=== PATIENT | female | born 2000 | race Caucasian/White ===

== ENCOUNTER → 2018-03-23 | Outpatient (CLI) | payer OTHER ==
--- NOTE | 2018-03-23 10:00 | Diagnostic Imaging Report ---
PROCEDURE: US abdomen complete. TECHNIQUE: Multiple real-time grayscale images were obtained over the abdomen in various projections. INDICATION: Right lower quadrant pain. The liver is normal in size at 14.9 cm. No discrete liver mass is identified. Gallbladder is without stones or sludge. No wall thickening or biliary duct dilatation is seen. The pancreas is obscured by bowel gas. Aorta is also obscured. IVC is unremarkable. Spleen is normal in size. The right and left kidneys are unremarkable. No calculi or hydronephrosis is seen. There is no ascites. IMPRESSION: Unremarkable abdominal ultrasound. Dictated by: Dictated on workstation # [id number]
== END ==
LOC: RAD 07:22
PROVIDERS: ATTEND Nurse Practitioner Family
DX: R10.31 Right lower quadrant pain (principal)
CPT/HCPCS: 76700

== ENCOUNTER 2018-11-14 11:35 | Inpatient (IN) | payer OTHER ==
[~2018-11-14] VITALS: Ht 152.4 cm; Wt 68.0 kg
[2018-11-14] VITALS (39 sets, daily range): BP systolic 130–167; BP diastolic 70–105
--- OUTSIDE RECORDS SUMMARY | 2018-11-14 11:39 | XMS REPORT ---
Author Author BRENT CEJA Organization [facility] Address [address] [place] [address] Care Team Providers Care Patient Experience Coordinator Name Role Phone BRENT CEJA Unavailable PROBLEMS Type Condition ICD9-CM Code FON46-QA Code Onset Dates Condition Status SNOMED Code Problem High risk teen in first trimester O09.891 Active 408188130 Problem Irregular menstrual bleeding N92.6 Active 27686859 Problem Amenorrhea N91.2 Active 72239411 Problem Chronic fatigue R53.82 Active 63833561 ALLERGIES No Information ENCOUNTERS Encounter Location Date Diagnosis [facility] [id number] [place] [address] 40370- 5977 Oct, [facility] [id number] [place] [address] 52942- 2806 Oct, [facility] [id number] [place] [address] 95683- 7254 Sep, [facility] [id number] [place] [address] 96010- 6833 Sep, [facility] [address] [place] [address] 62296- 6725 Aug, [facility] [id number] [place] [address] 39967- 2644 Aug, [facility] [id number] [place] [address] 02697- 9781 Jul, [facility] [id number] [place] [address] 92974- 7606 Jun, [facility] [id number] [place] [address] 68153- 3347 May, [facility] [address], [place] [address] 16 Apr, 2018 First trimester Z34.91 ; 9 weeks gestation of Z3A.09 and High risk teen in first trimester O09.891 [facility] [address] [address] 11 Apr, 2018 [place] [id number] [place] [address] 05762- 8062 Apr, Normal , first Z34.00 ; Encounter for immunization Z23 and Currently in first trimester with unknown gestational age Z34.91 [place] [id number] [place] [address] 54261- 5376 17 Mar, 2018 [place] [id number] [place] [address] 35360- 9943 17 Mar, 2018 [place] [id number] [place] [address] 64310- 7323 17 Mar, 2018 Positive test Z32.01 and Spotting affecting in first trimester O26.851 [place] [id number] [place] [address] 03230- 4048 14 Mar, 2018 [place] [id number] [place] [address] 74321- 8918 10 Mar, 2018 Pelvic pain R10.2 ; Amenorrhea N91.2 ; Other specified bacterial agents as the cause of diseases classified elsewhere B96.89 ; Acute vaginitis N76.0 and Positive test Z32.01 [facility] [address] [id number] [address] Feb, Encounter for test, result negative Z32.02 ; Right lower quadrant abdominal pain R10.31 and Amenorrhea N91.2 [facility] [address] [place] [address] 84725- 2505 Oct, Irregular menstrual bleeding N92.6 and Initiation of oral contraception Z30.011 [place] [id number] [place] [address] [place] [address]- [address]83 Jul, Encounter for test, result unknown Z32.00 [facility] [address] [facility] [id number] [place] [address] Jul, Chronic fatigue R53.82 and Amenorrhea N91.2 IMMUNIZATIONS No Known Immunizations SOCIAL HISTORY Never Assessed REASON FOR VISIT OB f/u (Centering) PLAN OF CARE Activity Details Follow Up 4 Weeks Reason: VITAL SIGNS Weight 141.0 lbs 2018-05-02 Blood pressure systolic 116 mmHg 2018-05-02 Blood pressure diastolic 72 mmHg 2018-05-02 MEDICATIONS Medication Instructions Dosage Frequency Start Date End Date Duration Status 28-0.8 MG Orally daily 1 24h Apr, Active RESULTS No Results PROCEDURES No Known procedures INSTRUCTIONS MEDICATIONS ADMINISTERED No Known Medications MEDICAL (GENERAL) HISTORY Type Description Date Surgical History No know Surgical history
--- OUTSIDE RECORDS SUMMARY | 2018-11-14 11:39 | XMS REPORT ---
Author Author THEODORE FERGUSON [facility] Address [address] [place] [address] Care Team Providers Care Sea Shell Gatherer Name Role Phone THEODORE FERGUSON Unavailable PROBLEMS Type Condition ICD9-CM Code YOD24-KM Code Onset Dates Condition Status SNOMED Code Problem Irregular menstrual bleeding N92.6 Active 53527555 Problem Amenorrhea N91.2 Active 73418398 Problem Chronic fatigue R53.82 Active 04660234 ALLERGIES No Known Allergies ENCOUNTERS Encounter Location Date Diagnosis [facility] [id number] [place] [address] 90606- 9001 Apr, Normal , first Z34.00 ; Encounter for immunization Z23 and Currently in first trimester with unknown gestational age Z34.91 [facility] [id number] [place] [address] 33039- 7019 Mar, [facility] [address] 03381- 5880 Mar, [facility] [id number] [place] [address] 27433- 7917 Mar, Positive test Z32.01 and Spotting affecting in first trimester O26.851 [facility] [id number] [place] [address] 61024- 0443 14 Mar, 2018 [facility] [id number] [place] [address] 55272- 7879 10 Mar, 2018 Pelvic pain R10.2 ; Amenorrhea N91.2 ; Other specified bacterial agents as the cause of diseases classified elsewhere B96.89 ; Acute vaginitis N76.0 and Positive test Z32.01 [facility] [id number] [place] [address] 80488 -7884 Feb, Encounter for test, result negative Z32.02 ; Right lower quadrant abdominal pain R10.31 and Amenorrhea N91.2 [facility] [id number] Oct, Irregular menstrual bleeding N92.6 and Initiation of oral contraception Z30.011 [facility] [address] [place] [address] 187079- 8490 Jul, Encounter for test, result unknown Z32.00 [facility] [address] [facility] [id number] [address] Jul, Chronic fatigue R53.82 and Amenorrhea N91.2 IMMUNIZATIONS No Known Immunizations SOCIAL HISTORY Never Assessed REASON FOR VISIT PLAN OF CARE VITAL SIGNS MEDICATIONS Medication Instructions Dosage Frequency Start Date End Date Duration Status Classic 28-0.8 MG Orally Once a day 1 tablet 24h Mar, Active Metronidazole 500 mg Orally Twice a day 1 tablet 12h Mar, Mar, 10 day(s) Active RESULTS No Results PROCEDURES No Known procedures INSTRUCTIONS MEDICATIONS ADMINISTERED No Known Medications MEDICAL (GENERAL) HISTORY Type Description Date Surgical History No know Surgical history
--- OUTSIDE RECORDS SUMMARY | 2018-11-14 11:39 | XMS REPORT ---
Author Author BRENT CEJA Organization [facility] [place] Address [address] [place] [address] Care Team Providers Care Furnace And Wash Equipment Operator Name Role Phone BRENT CEJA Unavailable PROBLEMS Type Condition ICD9-CM Code WGU59-ES Code Onset Dates Condition Status SNOMED Code Problem Irregular menstrual bleeding N92.6 Active 22777108 Problem Amenorrhea N91.2 Active 69541991 Problem Chronic fatigue R53.82 Active 95581696 ALLERGIES No Known Allergies ENCOUNTERS Encounter Location Date Diagnosis [place] [id number] [address] Apr, [facility] [place] [address] 30[address]- 3226 Apr, Normal , first Z34.00 ; Encounter for immunization Z23 and Currently in first trimester with unknown gestational age Z34.91 [facility] [place] [id number] [place] [address] 59134- 6178 Mar, [place] [id number] [place] [address] 06800- 2900 Mar, [place] [address] 16660- 5175 Mar, Positive test Z32.01 and Spotting affecting in first trimester O26.851 [place] [address] 93081- 4036 Mar, [place] [id number] [place] [address] 69446- 8353 Mar, Pelvic pain R10.2 ; Amenorrhea N91.2 ; Other specified bacterial agents as the cause of diseases classified elsewhere B96.89 ; Acute vaginitis N76.0 and Positive test Z32.01 [facility] [address], [place] [address] Feb, Encounter for test, result negative Z32.02 ; Right lower quadrant abdominal pain R10.31 and Amenorrhea N91.2 [facility] [place] [address] [place] [address] 55948- 2037 Oct, Irregular menstrual bleeding N92.6 and Initiation of oral contraception Z30.011 [facility] [place] [address] [place] [address] 79542- 0484 15 Jul, 2017 Encounter for test, result unknown Z32.00 [facility] [id number] [place] [address] 98878 -2880 Jul, Chronic fatigue R53.82 and Amenorrhea N91.2 IMMUNIZATIONS Vaccine Route Administration Date Status FLULAVAL QUAD 0.5ML (6 MO & UP) 2018 IM Intramuscular Apr 17, 2018 Administered SOCIAL HISTORY Never Assessed REASON FOR VISIT OB-intake -- denys echeverria PLAN OF CARE Activity Details Follow Up 4 weeks Reason: Pending Test GC/CHLAM URINE (STATE) Pending Test SYPHILIS (STATE) Pending Test HIV (STATE) Pending Test HEP B SURFACE ANTIGEN (STATE) Pending Test Acylcarnitine Profile (OUTSIDE ORDER) Pending Test Ultrasound : OB, Early <14 WEEKS VITAL SIGNS Height 59.50 in 2018-04-17 Weight 139.3 lbs 2018-04-17 Temperature 98.4 degrees Fahrenheit 2018-04-17 BMI 27.664 kg/m2 2018-04-17 Blood pressure systolic 108 mmHg 2018-04-17 Blood pressure diastolic 70 mmHg 2018-04-17 MEDICATIONS Medication Instructions Dosage Frequency Start Date End Date Duration Status Classic 28-0.8 MG Orally Once a day 1 tablet 24h Mar, Active 28-0.8 MG Orally daily 1 24h Apr, Active RESULTS No Results PROCEDURES Procedure Date Ordered Result Body Site FLULAVAL QUAD 0.5ML (6 MO AND UP) 2017Apr 17, 2018 SINGLE IMMUNIZATION ADMIN Apr 17, 2018 VENIPUNCT, ROUTINE* Apr 17, 2018 No Charge Apr 17, 2018 RBC ANTIBODY SCREEN Apr 17, 2018 RUBELLA ANTIBODY Apr 17, 2018 ASSAY THYROID STIM HORMONE Apr 17, 2018 URINALYSIS, AUTO, W/O SCOPE Apr 17, 2018 BLOOD TYPING, RH (D) Apr 17, 2018 URINE CULTURE/COLONY COUNT Apr 17, 2018 COMPLETE CBC W/AUTO DIFF WBC Apr 17, 2018 BLOOD TYPING, ABO Apr 17, 2018 INSTRUCTIONS MEDICATIONS ADMINISTERED No Known Medications MEDICAL (GENERAL) HISTORY Type Description Date Surgical History No know Surgical history
--- OUTSIDE RECORDS SUMMARY | 2018-11-14 11:39 | XMS REPORT ---
Author Author RAMO FOY [facility] Address [address] [place] [address] Care Team Providers Care Track Laborer Name Role Phone RAMO FOY Unavailable PROBLEMS Type Condition ICD9-CM Code [id number] Code Onset Dates Condition Status SNOMED Code Problem Irregular menstrual bleeding N92.6 Active 20592162 Problem Amenorrhea N91.2 Active 76645004 Problem Chronic fatigue R53.82 Active 09087504 ALLERGIES No Known Allergies ENCOUNTERS Encounter Location Date Diagnosis [facility] [id number] [place] [address] 45105- 1253 Apr, Normal , first Z34.00 ; Encounter for immunization Z23 and Currently in first trimester with unknown gestational age Z34.91 [facility] [id number] [place] [address] 40781- 1164 Mar, [facility] [id number] [place] [address] 79934- 4056 Mar, [facility] [id number] [place] [address] 92263- 9684 Mar, Positive test Z32.01 and Spotting affecting in first trimester O26.851 [facility] [id number] [place] [address] 11280- 3444 14 Mar, 2018 [facility] [id number] [place] [address] 66249- 2501 10 Mar, 2018 Pelvic pain R10.2 ; Amenorrhea N91.2 ; Other specified bacterial agents as the cause of diseases classified elsewhere B96.89 ; Acute vaginitis N76.0 and Positive test Z32.01 [facility] [id number] [place] [address] 31487 -2686 Feb, Encounter for test, result negative Z32.02 ; Right lower quadrant abdominal pain R10.31 and Amenorrhea N91.2 [facility] [address] [facility] [id number] [address] Oct, Irregular menstrual bleeding N92.6 and Initiation of oral contraception Z30.011 [facility] [id number] [address]1 Jul, Encounter for test, result unknown Z32.00 [facility] [address] [facility] [id number] [address] [address] Jul, Chronic fatigue R53.82 and Amenorrhea N91.2 IMMUNIZATIONS No Known Immunizations SOCIAL HISTORY Never Assessed REASON FOR VISIT labs f/u PLAN OF CARE Activity Details Follow Up 4 Weeks Reason:OB intake appt VITAL SIGNS Height 59.50 in 2018-04-03 Weight 138.8 lbs 2018-04-03 Temperature 98.7 degrees Fahrenheit 2018-04-03 Heart Rate 92 bpm 2018-04-03 Respiratory Rate 18 2018-04-03 BMI 27.56 kg/m2 2018-04-03 Blood pressure systolic 128 mmHg 2018-04-03 Blood pressure diastolic 72 mmHg 2018-04-03 MEDICATIONS Medication Instructions Dosage Frequency Start Date End Date Duration Status Classic 28-0.8 MG Orally Once a day 1 tablet 24h 10 Mar, 2018 Active Metronidazole 500 mg Orally Twice a day 1 tablet 12h Mar, Mar, 10 day(s) Active RESULTS No Results PROCEDURES Procedure Date Ordered Result Body Site CHORIONIC GONADOTROPIN TEST Apr 03, 2018 VENIPUNCT, ROUTINE* Apr 03, 2018 INSTRUCTIONS MEDICATIONS ADMINISTERED No Known Medications MEDICAL (GENERAL) HISTORY Type Description Date Surgical History No know Surgical history
--- OUTSIDE RECORDS SUMMARY | 2018-11-14 11:39 | XMS REPORT ---
Author Author BRENT CEJA Organization [facility] Address [address] [place] [address] Care Team Providers Care Clinical Associate Name Role Phone BRENT CEJA Unavailable PROBLEMS Type Condition ICD9-CM Code ZWW47-XH Code Onset Dates Condition Status SNOMED Code Problem High risk teen in first trimester O09.891 Active 276501091 Problem Irregular menstrual bleeding N92.6 Active 60571096 Problem Amenorrhea N91.2 Active 46244747 Problem Chronic fatigue R53.82 Active 27826758 ALLERGIES No Information ENCOUNTERS Encounter Location Date Diagnosis [place] [id number] [place] [address] 26015- 9388 Jun, [place] [id number] [place] [address] 80047- 4783 May, [place] [id number] [place] [address] 06481- 4256 May, High risk teen in first trimester O09.891 and 13 weeks gestation of Z3A.13 [place] [id number] [place] [address] 39709- 6064 Apr, First trimester Z34.91 ; 9 weeks gestation of Z3A.09 and High risk teen in first trimester O09.891 [place] [id number] [place] [address] 53152- 8635 Apr, [place] [id number] [place] [address] 01619- 9384 Apr, Normal , first Z34.00 ; Encounter for immunization Z23 and Currently in first trimester with unknown gestational age Z34.91 [place] [address] [address]- 6825 17 Mar, 2018 [place] [address], [place] [address]- 8627 17 Mar, 2018 [place] [id number] [place] [address] 12717- 8392 17 Mar, 2018 Positive test Z32.01 and Spotting affecting in first trimester O26.851 [place] [id number] [place] [address] 01802- 8262 14 Mar, 2018 [place] [id number] [place] [address] 83264- 6942 10 Mar, 2018 Pelvic pain R10.2 ; Amenorrhea N91.2 ; Other specified bacterial agents as the cause of diseases classified elsewhere B96.89 ; Acute vaginitis N76.0 and Positive test Z32.01 [place] [address] [place] [address] 60684 -1690 Feb, Encounter for test, result negative Z32.02 ; Right lower quadrant abdominal pain R10.31 and Amenorrhea N91.2 [place] [address] [place] [address] 19065- 2911 Oct, Irregular menstrual bleeding N92.6 and Initiation of oral contraception Z30.011 [place] [address] [place] [address] 74990- 2790 15 Jul, 2017 Encounter for test, result unknown Z32.00 [place] [address] [place] [address] 97799 -7467 Jul, Chronic fatigue R53.82 and Amenorrhea N91.2 IMMUNIZATIONS No Known Immunizations SOCIAL HISTORY Never Assessed REASON FOR VISIT triage PLAN OF CARE VITAL SIGNS MEDICATIONS Unknown Medications RESULTS No Results PROCEDURES No Known procedures INSTRUCTIONS MEDICATIONS ADMINISTERED No Known Medications MEDICAL (GENERAL) HISTORY Type Description Date Surgical History No know Surgical history
--- OUTSIDE RECORDS SUMMARY | 2018-11-14 11:40 | XMS REPORT | Continuity of Care Document ---
Author Organization Unknown Address Unknown Allergies There is no data. Medications There is no data. Problems There is no data. Procedures There is no data. Results Test Result Range TEST, SERUM (QUAL) - 08/01/17 09:48 HCG, TOTAL, QL NEGATIVE See Note: TESTOSTERONE, TOTAL (WOMEN, CHILDREN, HYPOGONADAL MALES) - 03/27/18 11:34 TESTOSTERONE, TOTAL, LC/MS/MS 62 ng/dL 2-45 FREE TESTOSTERONE 9.6 pg/mL 0.1-6.4 GC/CHLAMYDIA (SWAB OR URINE)-RAPID - 03/27/18 13:28 CHLAMYDIA TRACHOMATIS RNA, TMA NOT DETECTED NOT DETECTED NEISSERIA GONORRHOEAE RNA, TMA NOT DETECTED NOT DETECTED COMMENT NRG HCG, QUANTITATIVE - 04/03/18 10:41 [place] [address] mIU/mL NRG CULTURE, URINE - 04/17/18 16:26 CULTURE, URINE, ROUTINE SEE NOTE NRG Encounters ACCT No. Visit Date/Time Discharge Status Pt. Type Provider Facility Loc./Unit Complaint [id number] 11/09/2018 14:20:00 11/09/2018 23:59:59 [facility] Outpatient BRENT CEJA [facility] [id number] 04/17/2018 16:40:00 Document Registration [id number] 04/03/2018 09:20:00 Document Registration [id number] 03/27/2018 10:20:00 Document Registration [id number] 08/01/2017 09:40:00 Document Registration
--- OUTSIDE RECORDS SUMMARY | 2018-11-14 11:40 | XMS REPORT ---
Author Author RAMO FOY [facility] Address [address] [place] [address] Care Team Providers Care Claim Approver Name Role Phone RAMO FOY Unavailable PROBLEMS Type Condition ICD9-CM Code MQX08-YC Code Onset Dates Condition Status SNOMED Code Problem Irregular menstrual bleeding N92.6 Active 72867713 Problem Amenorrhea N91.2 Active 78674955 Problem Chronic fatigue R53.82 Active 46366535 ALLERGIES No Known Allergies ENCOUNTERS Encounter Location Date Diagnosis [facility] [id number] [place] [address] 02430- 9077 Apr, Normal , first Z34.00 ; Encounter for immunization Z23 and Currently in first trimester with unknown gestational age Z34.91 [facility] [id number] [place] [address] 63678- 5896 Mar, [facility] [id number] [place] [address] 93997- 8701 Mar, [facility] [id number] [place] [address] 14139- 2140 Mar, Positive test Z32.01 and Spotting affecting in first trimester O26.851 [facility] [id number] [place] [address] 62505- 9094 14 Mar, 2018 [facility] [id number] [place] [address] 17241- 7468 10 Mar, 2018 Pelvic pain R10.2 ; Amenorrhea N91.2 ; Other specified bacterial agents as the cause of diseases classified elsewhere B96.89 ; Acute vaginitis N76.0 and Positive test Z32.01 [facility] [id number] [place] [address] 19945 -2502 Feb, Encounter for test, result negative Z32.02 ; Right lower quadrant abdominal pain R10.31 and Amenorrhea N91.2 [facility] [address] [facility] [id number] [address] Oct, Irregular menstrual bleeding N92.6 and Initiation of oral contraception Z30.011 [facility] [id number] [place] [address] 714220- 1075 Jul, Encounter for test, result unknown Z32.00 [facility] [address] [facility] [id number] [address] Jul, Chronic fatigue R53.82 and Amenorrhea N91.2 IMMUNIZATIONS No Known Immunizations SOCIAL HISTORY Never Assessed REASON FOR VISIT Pt had an ultrasound and has not recieved results and is still in abdominal pain. Tuesday, she spotted, but has not had a full period yet-awoods PLAN OF CARE Activity Details Follow Up 1w Reason:pelvic pain VITAL SIGNS Height 59.50 in 2018-03-27 Weight 138.6 lbs 2018-03-27 Temperature 99.2 degrees Fahrenheit 2018-03-27 Heart Rate 78 bpm 2018-03-27 BMI 27.52 kg/m2 2018-03-27 Blood pressure systolic 102 mmHg 2018-03-27 Blood pressure diastolic 60 mmHg 2018-03-27 MEDICATIONS Medication Instructions Dosage Frequency Start Date End Date Duration Status Classic 28-0.8 MG Orally Once a day 1 tablet 24h Mar, 30 day(s) Active Metronidazole 500 mg Orally Twice a day 1 tablet 12h Mar, Mar, 10 day(s) Active RESULTS No Results PROCEDURES Procedure Date Ordered Result Body Site VENIPUNCT, ROUTINE* Mar 27, 2018 URINE TEST Mar 27, 2018 CHORIONIC GONADOTROPIN TEST Mar 27, 2018 CHYLMD TRACH, DNA, AMP PROBE Mar 27, 2018 N.GONORRHOEAE, DNA, AMP PROB Mar 27, 2018 URINALYSIS, AUTO, W/O SCOPE Mar 27, 2018 COMPLETE CBC W/AUTO DIFF WBC Mar 27, 2018 URINE CULTURE/COLONY COUNT Mar 27, 2018 Bacterial Vaginosis In House Mar 27, 2018 TRICHOMONAS ASSAY W/OPTIC Mar 27, 2018 COMPREHEN METABOLIC PANEL Mar 27, 2018 ASSAY THYROID STIM HORMONE Mar 27, 2018 INSTRUCTIONS MEDICATIONS ADMINISTERED No Known Medications MEDICAL (GENERAL) HISTORY Type Description Date Surgical History No know Surgical history
--- OUTSIDE RECORDS SUMMARY | 2018-11-14 11:40 | XMS REPORT ---
Author Author RAMO FOY [facility] Address [address] [place] [address] Care Team Providers Care Marine Fireman Name Role Phone RAMO FOY Unavailable PROBLEMS Type Condition ICD9-CM Code [id number] Code Onset Dates Condition Status SNOMED Code Problem Irregular menstrual bleeding N92.6 Active 15154886 Problem Amenorrhea N91.2 Active 62769142 Problem Chronic fatigue R53.82 Active [id number] ALLERGIES No Information ENCOUNTERS Encounter Location Date Diagnosis [facility] [address] [phone] Apr, Normal , first Z34.00 and Encounter for immunization Z23 [facility] [id number] [place] [phone] Mar, [facility] [address] [phone] Mar, [facility] [id number] [place] [address] Mar, Positive test Z32.01 and Spotting affecting in first trimester O26.851 [facility] [id number] [place] [address] 14 Mar, 2018 [facility] [id number] [place] [address] 10 Mar, 2018 Pelvic pain R10.2 ; Amenorrhea N91.2 ; Other specified bacterial agents as the cause of diseases classified elsewhere B96.89 ; Acute vaginitis N76.0 and Positive test Z32.01 [facility] [address] [place] [address] Feb, Encounter for test, result negative Z32.02 ; Right lower quadrant abdominal pain R10.31 and Amenorrhea N91.2 [facility] [address] [place] [address] Oct, Irregular menstrual bleeding N92.6 and Initiation of oral contraception Z30.011 [facility] [address] [place] [address] Jul, Encounter for test, result unknown Z32.00 [facility] [address] [address] Jul, Chronic fatigue R53.82 and Amenorrhea N91.2 IMMUNIZATIONS No Known Immunizations SOCIAL HISTORY Never Assessed REASON FOR VISIT Lab results PLAN OF CARE VITAL SIGNS MEDICATIONS Unknown Medications RESULTS No Results PROCEDURES No Known procedures INSTRUCTIONS MEDICATIONS ADMINISTERED No Known Medications MEDICAL (GENERAL) HISTORY Type Description Date Surgical History No know Surgical history
--- OUTSIDE RECORDS SUMMARY | 2018-11-14 11:40 | XMS REPORT ---
Author Author THEODORE FERGUSON Organization [facility] Address [address] [place] [address] Care Team Providers Care Technology Solutions Architect Name Role Phone THEODORE FERGUSON Unavailable PROBLEMS Type Condition ICD9-CM Code IED01-LS Code Onset Dates Condition Status SNOMED Code Problem Irregular menstrual bleeding N92.6 Active 38696472 Problem Amenorrhea N91.2 Active 77464863 Problem Chronic fatigue R53.82 Active 39487201 ALLERGIES No Information ENCOUNTERS Encounter Location Date Diagnosis [facility] [id number] [place] [address] 27 Oct, 2017 Irregular menstrual bleeding N92.6 and Initiation of oral contraception Z30.011 [facility] [id number] [place] [address] Jul, Encounter for test, result unknown Z32.00 [facility] [address] [phone] 02 Jul, 2017 Chronic fatigue R53.82 and Amenorrhea N91.2 IMMUNIZATIONS No Known Immunizations SOCIAL HISTORY Never Assessed REASON FOR VISIT test (walk-in)/Blood PLAN OF CARE VITAL SIGNS MEDICATIONS Unknown Medications RESULTS No Results PROCEDURES Procedure Date Ordered Result Body Site CHORIONIC GONADOTROPIN ASSAY Aug 01, 2017 VENIPUNCT, ROUTINE* Aug 01, 2017 INSTRUCTIONS MEDICATIONS ADMINISTERED No Known Medications
--- OUTSIDE RECORDS SUMMARY | 2018-11-14 11:40 | XMS REPORT ---
Author Author DAMION CALDERON [facility] Address [address] [place] [address] Care Team Providers Care Construction Worker Name Role Phone DAMION CALDERON Unavailable PROBLEMS Type Condition ICD9-CM Code PBQ67-IU Code Onset Dates Condition Status SNOMED Code Problem Irregular menstrual bleeding N92.6 Active 43223862 Problem Amenorrhea N91.2 Active 84252932 Problem Chronic fatigue R53.82 Active 17836985 ALLERGIES No Known Allergies ENCOUNTERS Encounter Location Date Diagnosis [facility] [id number] [place] [address] 27 Oct, 2017 Irregular menstrual bleeding N92.6 and Initiation of oral contraception Z30.011 [facility] [id number] [place] [address] 15 Jul, 2017 Encounter for test, result unknown Z32.00 [facility] [id number] [place] [phone] 02 Jul, 2017 Chronic fatigue R53.82 and Amenorrhea N91.2 IMMUNIZATIONS No Known Immunizations SOCIAL HISTORY Never Assessed REASON FOR VISIT fatigue all the time rosalio rubio PLAN OF CARE Activity Details Follow Up prn Reason: VITAL SIGNS Weight 135.2 lbs 2017-07-19 Temperature 98.1 degrees Fahrenheit 2017-07-19 Heart Rate 80 bpm 2017-07-19 Respiratory Rate 18 2017-07-19 Blood pressure systolic 124 mmHg 2017-07-19 Blood pressure diastolic 64 mmHg 2017-07-19 MEDICATIONS Unknown Medications RESULTS Name Result Date Reference Range HEMOGLOBIN (IN HOUSE) 2017-07-19 HEMOGLOBIN 14.6 11.5 - 16 gm/dL Lot # [id number] Exp date 03/24/2017 TEST, URINE (IN HOUSE) 2017-07-19 RESULTS negative Lot # [id number] Control + Exp date PROCEDURES Procedure Date Ordered Result Body Site HEMOGLOBIN Jul 19, 2017 URINE TEST Jul 19, 2017 INSTRUCTIONS MEDICATIONS ADMINISTERED No Known Medications
--- OUTSIDE RECORDS SUMMARY | 2018-11-14 11:40 | XMS REPORT ---
Author Author BRITTON Patel Organization [facility] Address [address] [place] [address] Care Team Providers Care Heat And Frost Insulator Name Role Phone BRITTON aPtel Unavailable PROBLEMS Type Condition ICD9-CM Code HCA59-AJ Code Onset Dates Condition Status SNOMED Code Problem Irregular menstrual bleeding N92.6 Active 96517338 Problem Amenorrhea N91.2 Active 31299778 Problem Chronic fatigue R53.82 Active 50313285 ALLERGIES No Known Allergies ENCOUNTERS Encounter Location Date Diagnosis [facility] [address] [place] [address] 27 Oct, 2017 Irregular menstrual bleeding N92.6 and Initiation of oral contraception Z30.011 [facility] [address] [place] [address] 15 Jul, 2017 Encounter for test, result unknown Z32.00 [facility] [address] [place] [phone] 02 Jul, 2017 Chronic fatigue R53.82 and Amenorrhea N91.2 IMMUNIZATIONS No Known Immunizations SOCIAL HISTORY Never Assessed REASON FOR VISIT irregular bleeding WB-MA, Periods have been irregular for the past three months with heavy bleeding , Patient exxperiences bloating after every meal and has stomach pain PLAN OF CARE Activity Details Follow Up 1 Year Reason: control VITAL SIGNS Weight 138 lbs 2017-11-11 Temperature 97.5 degrees Fahrenheit 2017-11-11 Heart Rate 84 bpm 2017-11-11 Respiratory Rate 18 2017-11-11 Blood pressure systolic 122 mmHg 2017-11-11 Blood pressure diastolic 78 mmHg 2017-11-11 MEDICATIONS Unknown Medications RESULTS No Results PROCEDURES No Known procedures INSTRUCTIONS MEDICATIONS ADMINISTERED No Known Medications
[2018-11-14] MEDS ORDERED: MINERAL OIL CONCENTRATE 99.9% 15 ML UDC TOP PRN (13:15)
[2018-11-14] MEDS ORDERED: TERBUTALINE INJ 1 MG/ML (BRETHINE) AMP SC PRN (13:15)
[2018-11-14] MEDS ORDERED: LACTATED RINGERS 1,000 ML IV SCH (13:15)
[2018-11-14] MEDS ORDERED: MISOPROSTOL 100 MCG (CYTOTEC) TAB PO ONE (13:15)
[2018-11-14] MEDS ORDERED: LIDOCAINE/EPI 2% 1:200,00 (XYLOCAINE) 10 ML VIAL INJ ONE (13:15)
[2018-11-14] MEDS ORDERED: PREN1TAB79 PO (13:22)
[2018-11-14 13:25] LABS: BILIRUBIN,URINE NEGATIVE (NEGATIVE); CLARITY,URINE CLEAR; COLOR,URINE YELLOW; GLUCOSE, URINE (UA) NEGATIVE (NEGATIVE); KETONES,URINE NEGATIVE (NEGATIVE); LEUKOCYTE ESTERASE ,URINE NEGATIVE (NEGATIVE); NITRITE,URINE NEGATIVE (NEGATIVE); PH,URINE 6 (5-9); PROTEIN,URINE 3+ (NEGATIVE); UROBILINOGEN,URINE 1 MG/DL (NORMAL)
[2018-11-14 13:26] LABS: BASOPHILS % (AUTO) 0 % (0-10); EOSINOPHILS # (AUTO) 0.1 10^3/uL (0.0-0.3); EOSINOPHILS % (AUTO) 1 % (0-10); HEMATOCRIT 41 % (35-52); HEMOGLOBIN 14.5 G/DL (11.5-16.0); LYMPHOCYTES # (AUTO) 2.2 X 10^3 (1.0-4.0); LYMPHOCYTES % (AUTO) 24 % (12-44); MEAN CORPUSCULAR HEMOGLOBIN 29 PG (25-34); MEAN CORPUSCULAR HGB CONC 35 G/DL (32-36); MEAN CORPUSCULAR VOLUME 84 FL (80-99); MEAN PLATELET VOLUME 11.9 FL (7.4-10.4); MONOCYTES % (AUTO) 11 % (0-12); NEUTROPHILS # (AUTO) 5.7 X 10^3 (1.8-7.8); NEUTROPHILS % (AUTO) 63 % (42-75); PLATELET COUNT 236 10^3/uL (130-400); RED CELL DISTRIBUTION WIDTH 13.7 % (10.0-14.5); WHITE BLOOD COUNT 8.9 10^3/uL (4.3-11.0)
[2018-11-14] MEDS ORDERED: MISOPROSTOL 100 MCG (CYTOTEC) TAB ONE (13:26)
[2018-11-14] MEDS ORDERED: D5 LR IV SOLUTION 1,000 ML IV ONE (13:27)
[2018-11-14] MEDS ORDERED: LIDOCAINE/EPI 1%-1:200,000 (XYLOCAINE) 10 ML VIAL INJ ONE (13:30)
[2018-11-14] MEDS: D5 LR IV SOLUTION 1,000 ML IV SCH (13:34)
[2018-11-14 14:11] LABS: BACTERIA,URINE TRACE /HPF; GRANULAR CASTS,URINE RARE /LPF; SQUAMOUS EPITHELIAL CELL,UR 0-2 /HPF; WBC,URINE 0-2 /HPF
[2018-11-14 14:12] LABS: HYALINE CASTS, URINE RARE /LPF
[2018-11-14] MEDS ORDERED: fentaNYL INJECTION 100 MCG/2 ML AMP IVP ONE (15:15)
[2018-11-14 15:34] LABS: ALANINE AMINOTRANSFERASE 65 U/L (0-55); ALBUMIN 3.2 GM/DL (3.2-4.5); ALKALINE PHOSPHATASE 312 U/L (40-136); BILIRUBIN,TOTAL 0.6 MG/DL (0.1-1.0); BUN/CREATININE RATIO 17; CALCIUM 9.7 MG/DL (8.5-10.1); CARBON DIOXIDE 17 MMOL/L (21-32); CHLORIDE 108 MMOL/L (98-107); GFR ESTIMATED > 60; GLUCOSE 93 MG/DL (70-105); POTASSIUM 3.9 MMOL/L (3.6-5.0); SODIUM 139 MMOL/L (135-145); TOTAL PROTEIN 6.7 GM/DL (6.4-8.2); URIC ACID 6.6 MG/DL (2.6-7.2)
[2018-11-14] MEDS ORDERED: D5 LR IV SOLUTION 1,000 ML IV SCH (16:54)
[2018-11-14] MEDS ORDERED: CALCIUM GLUC. 10% 4.65 MEQ/10 ML VIAL IV PRN (17:00)
[2018-11-14] MEDS ORDERED: MAGNESIUM 4 GM/100 ML IVPB 100 ML IV NR (17:00)
[2018-11-14] MEDS ORDERED: MISOPROSTOL 100 MCG (CYTOTEC) TAB PO SCH (17:15)
[2018-11-14] MEDS: MAGNESIUM SULFATE DRIP 500 ML IV SCH (17:50)
[2018-11-14] MEDS: CATHETER FLUSH 10 ML SYR IV SCH (17:59)
[2018-11-14] MEDS ORDERED: OXYTOCIN/NORMAL SALINE 500 ML IV SCH (18:30)
--- NOTE | 2018-11-14 20:28 | NUR ---
This RN called Dr. Carlos with update on pt. status. No new orders received. Will give updates as needed.
[2018-11-15] VITALS (59 sets, daily range): BP systolic 109–154; BP diastolic 58–101
[2018-11-15] MEDS ORDERED: BUTORPHANOL INJ 2 MG/ML (STADOL) VIAL ONE (00:56)
[2018-11-15] MEDS ORDERED: BUTORPHANOL INJ 2 MG/ML (STADOL) VIAL IV ONE (01:00)
[2018-11-15] MEDS ORDERED: SUFENTA 0.6MCG/ML BUPIVA 0.125 100 ML ONE (02:40)
[2018-11-15] MEDS ORDERED: BUPIVACAINE 0.25% 30 ML (SENSORCAINE) VIAL ONE (03:25)
[2018-11-15] MEDS ORDERED: fentaNYL INJECTION 100 MCG/2 ML AMP ONE (03:26)
[2018-11-15] MEDS: MAGNESIUM SULFATE DRIP 500 ML IV SCH ×2 (03:34→13:50)
--- NOTE | 2018-11-15 03:54 | NUR ---
SRNA here at 0335, Reed Suarez, NIMA here at 0354 for epidural placement. Procedure explained, consent reviewed and signed by anesthesia. Questions answered to patient's satisfaction. Time out taken to verify correct patient/procedure. Patient up to side of bed, assisted into sitting position. Betadine prep done x3 and sterile drape applied. Local done, see anesthesia record. Test dose given, see anesthesia record for drug and dosage. Epidural catheter secured in place. Epidural placement complete. Assisted back into bed, monitors adjusted. Epidural dosed, see anesthesia record. Epidural of Sufenta/Bupvicaine @12cc/hr stated per pump. Patient tolerated procedure well.
[2018-11-15] MEDS ORDERED: diphenhydrAMINE 50 MG/ML INJ (BENADRYL) IV PRN ×3 (04:15→10:15)
[2018-11-15] MEDS ORDERED: METOCLOPRAMIDE INJ 10 MG/2 ML (REGLAN) IV PRN (04:15)
[2018-11-15] MEDS ORDERED: EPIDURAL (SUFENTA 0.6MCG/ML BUPIVA 0.125%) 100 ML BAG EPI PRN ×2 (04:15→10:15)
[2018-11-15] MEDS ORDERED: ONDANSETRON 4 MG/2 ML (SDV) Z0FRAN IV PRN ×3 (04:15→10:15)
[2018-11-15] MEDS ORDERED: LACTATED RINGERS 1,000 ML IV ONE (04:15)
[2018-11-15] MEDS ORDERED: NALOXONE 0.4 MG/ML 1 ML (NARCAN) VIAL IV PRN ×4 (04:15→10:15)
[2018-11-15] MEDS ORDERED: BUTORPHANOL INJ 2 MG/ML (STADOL) VIAL IV PRN (05:00)
[2018-11-15] MEDS: CATHETER FLUSH 10 ML SYR IV SCH (05:44)
[2018-11-15] MEDS: D5 LR IV SOLUTION 1,000 ML IV SCH (06:43)
--- NOTE | 2018-11-15 08:35 | NUR ---
FFu/2. moderate rubra noted. no clots expressed. 2nd degree laceration repair completed by 0840-FFu/2. bryson-care offered. v-pad in place. 0842- epidural infusion off. 0846- 2nd bag of pitocin infusing @ 999cc/hr via IV pump. FFu/2. 0848- epidural catheter dc'd. color tip intact. FFu/2.
--- NOTE | 2018-11-15 08:54 | History & Physical-OB ---
OB - Chief Complaint & HPI Date/Time Date of Admission: Date of Admission: Nov 14, 2018 at 11:35 Date seen by a Provider: November 15, 2018 Time Seen by a Provider: 08:19 Chief Complaint/History OB-Reason for Admission/Chief: Induction of Labor Hx : 1 Expected Date of Delivery: December 04, 2018 Gestational Age in Weeks: 37 Gestational Age in Days: 2 Indication for induction: medical complication (Cholestatis and Pre eclampsia) Allergies and Home Medications Allergies Coded Allergies: No Known Drug Allergies (Unverified , 11/14/18) Home Medications Vit W-Ca,Fe,FA(<1 mg) 1 Each Tablet, 1 TAB PO DAILY, (Reported) Patient Home Medication List Home Medication List Reviewed: Yes OB - History Hx of Present Care: Yes Ultrasounds: Normal mid trimester US Obstetrical Complications: Pre-eclampsia, Other (Cholestatis) Medical Complications: None Obstetrical History Hx : 1 Delivery History Adverse Rxn to Tranfusion: No Patient Past Medical History None Social History/Family History HIV/AIDS: No Recent Infectious Disease Expo: No Sexually Transmitted Disease: No Alcohol Use: Denies Use Recreational Drug Use: No Smoking Cessation: Never smoker Immunizations Hepatitis A: No Hepatitis B: No Tetanus Booster (TDap): Less than 5yrs Rubella: not immune RPR/VDRL: Negative GBS Status: Negative HBsAG: Negative OB - Admission Exam Physical Exam Vitals: Vital Signs 11/15/18 11/15/18 06:30 07:00 Temp 98.0 Pulse 100 Resp 20 B/P (MAP) 122/68 (86) Pulse Ox 99 O2 Delivery Non Rebreather O2 Flow Rate 15.00 HEENT: NCAT Heart: Rhythm Normal Lungs: Clear Abdomen: Gravid Extremities: Normal Cervical Dilatation: 10cm Effacement: 100% Station: 0 Membranes: Ruptured Amniotic Fluid: Clear Heart Rate: 150's Accelerations: Accelerations Present Decelerations: No Decelerations Short Term Variability: Present Contractions on Admission: < 5 Minutes Apart Harris Scoring Tool (Modified) Dilation (cm): 1-2cm (1) Effacement (%): 31-51% (1) Descent/Station: -1,0 (2) Cervix Consistency: Medium(1) Cervix Position: Middle/Mid-Position (1) Add 1 point for: Pre-eclampsia (1) Subtract 1 point for: Nulliparity (-1) Harris Score: 6 Labs Laboratory Tests Test 11/14/18 12:09 11/14/18 12:35 11/14/18 22:29 11/15/18 04:35 Range/Units White Blood Count 8.9 4.3-11.0 10^3/uL Red Blood Count 4.95 4.35-5.85 10^6/uL Hemoglobin 14.5 11.5-16.0 G/DL Hematocrit 41 35-52 % Mean Corpuscular Volume 84 80-99 FL Mean Corpuscular Hemoglobin 29 25-34 PG Mean Corpuscular Hemoglobin Concent 35 32-36 G/DL Red Cell Distribution Width 13.7 10.0-14.5 % Platelet Count 236 130-400 10^3/uL Mean Platelet Volume 11.9 H 7.4-10.4 FL Neutrophils (%) (Auto) 63 42-75 % Lymphocytes (%) (Auto) 24 12-44 % Monocytes (%) (Auto) 11 0-12 % Eosinophils (%) (Auto) 1 0-10 % Basophils (%) (Auto) 0 0-10 % Neutrophils # (Auto) 5.7 1.8-7.8 X 10^3 Lymphocytes # (Auto) 2.2 1.0-4.0 X 10^3 Monocytes # (Auto) 1.0 0.0-1.0 X 10^3 Eosinophils # (Auto) 0.1 0.0-0.3 10^3/uL Basophils # (Auto) 0.0 0.0-0.1 10^3/uL Sodium Level 139 135-145 MMOL/L Potassium Level 3.9 3.6-5.0 MMOL/L Chloride Level 108 H 98-107 MMOL/L Carbon Dioxide Level 17 L 21-32 MMOL/L Anion Gap 14 5-14 MMOL/L Blood Urea Nitrogen 10 7-18 MG/DL Creatinine 0.60 0.60-1.30 MG/DL Estimat Glomerular Filtration Rate > 60 BUN/Creatinine Ratio 17 Glucose Level 93 70-105 MG/DL Uric Acid 6.6 2.6-7.2 MG/DL Calcium Level 9.7 8.5-10.1 MG/DL Corrected Calcium 10.3 H 8.5-10.1 MG/DL Magnesium Level 1.9 5.2 #*H 5.6 *H 1.8-2.4 MG/DL Total Bilirubin 0.6 0.1-1.0 MG/DL Aspartate Amino Transf (AST/SGOT) 26 5-34 U/L Alanine Aminotransferase (ALT/SGPT) 65 H 0-55 U/L Alkaline Phosphatase 312 H 40-136 U/L Lactate Dehydrogenase 294 H 125-220 U/L Total Protein 6.7 6.4-8.2 GM/DL Albumin 3.2 3.2-4.5 GM/DL Urine Color YELLOW Urine Clarity CLEAR Urine pH 6 5-9 Urine Specific [place] 1.015 L 1.016-1.022 Urine Protein 112 H 6-12 MG/DL Urine Glucose (UA) NEGATIVE NEGATIVE Urine Ketones NEGATIVE NEGATIVE Urine Nitrite NEGATIVE NEGATIVE Urine Bilirubin NEGATIVE NEGATIVE Urine Urobilinogen 1 NORMAL MG/DL Urine Leukocyte Esterase NEGATIVE NEGATIVE Urine RBC (Auto) NEGATIVE NEGATIVE Urine RBC NONE /HPF Urine WBC 0-2 /HPF Urine Squamous Epithelial Cells 0-2 /HPF Urine Renal Epithelial Cells NONE /HPF Urine Crystals NONE /LPF Urine Bacteria TRACE /HPF Urine Casts PRESENT /LPF Urine Hyaline Casts RARE /LPF Urine Granular Casts RARE /LPF Urine Mucus NEGATIVE /LPF Urine Culture Indicated NO Urine Creatinine 49 30-125 MG/DL Urine Protein/Creatinine Ratio 2.29 OB - Assessment/Plan/Diagnosis Assessment Assessment: induction of labor Admission Dx Pre eclampsia Cholestatis 37 week gestation Admission Status: Inpatient Order (span 2 midnights) Reason for Inpatient Admission: Labor Plan Plan: Induction Induction Method: per Pitocin Protocol Other Plan 18 yo G1 @ 37.2 wga here for IOL for Pre eclampsia and Cholestatis Plan Pitocin protocol Epidural for pain control GBS Neg Pre eclampsia: On Mg protocol Copy Copies To 1: BRENT CEJA MD, HOLLY R MD November 15, 2018 08:54
[2018-11-15] MEDS ORDERED: OXYTOCIN/NORMAL SALINE 500 ML IV SCH (08:56)
[2018-11-15] MEDS ORDERED: WITCH HAZEL(TUCKS) 40 EA JAR TOP PRN (09:00)
[2018-11-15] MEDS ORDERED: BENZOCAINE/MENTHOL (DERMOPLAST) 56 ML CAN TP PRN (09:00)
[2018-11-15] MEDS ORDERED: MEASLES,MUMPS,RUBELLA 1 EA INJ SQ ONE (09:00)
--- NOTE | 2018-11-15 09:03 | OB Labor & Delivery Record ---
Vag Delivery Note Vag Delivery Note Date of Delivery: 11/15/18 Preoperative Diagnosis: Ana Geronimo is a (18 /Para 1 /0 , Gestational Age (wks)37.2 wga here for IOL 2/2 to pre eclampsia and Cholestatis Postoperative Diagnosis: Same Surgeon: BRENT CEJA Lead Consultant: None Anesthesia: epidural Delivery Type: @ 0819 Findings: Term male infant with some respiratory depression Viable male infant, apgars 6/7/8, weight 5# 12, 2615 grams Lacerations: 2nd degree laceration Intact placenta with 3 vessel cord. No nuchal cord, body cord or shoulder dystocia Estimated Blood Loss: 200 ml Complications: None Condition: Stable Description of Procedure: The patient is a 18 year old female who presented for IOL for pre eclampsia and cholestatis. She was admitted and informed consent was obtained. Her labor course was remarkable for pre eclampsia. She progressed to complete dilatation and began to push. She was then set up for delivery. The 's head was delivered atraumatically in the [facility] position. The shoulders and remainder of the 's body were then delivered without difficulty. Upon delivery, the head was held below the level of the perineum and the mouth and nares were bulb suctioned. The cord was doubly clamped and cut and the infant was handed off to the pediatric staff. An intact placenta with 3-vessel cord delivered via Jaciel and there was found to be minimal bleeding.~ Vigorous fundal massage was performed and the fundus was found to be firm. IV oxytocin was given. Examination of the vagina and perineum revealed a 2nd degree laceration repaired in the usual fashion with 3-0 reped suture. Following the repair, sponge, instrument and needle counts were correct. Mom in the labor suite in stable condition, Infant brought to nursery for respiratory distress. Vitals - Labs Vital Signs - I&O Vital Signs Date Time Temp Pulse Resp B/P (MAP) Pulse Ox O2 Delivery O2 Flow Rate FiO2 11/15/18 07:00 100 20 122/68 (86) 99 Non Rebreather 15.00 11/15/18 06:45 95 20 119/68 (85) 99 Non Rebreather 15.00 11/15/18 06:30 98.0 92 20 119/68 (85) 99 Non Rebreather 15.00 11/15/18 06:15 86 20 109/60 (76) 99 Non Rebreather 15.00 11/15/18 06:05 90 20 111/63 (79) 99 Non Rebreather 15.00 11/15/18 05:50 90 20 116/67 (83) 99 Non Rebreather 15.00 11/15/18 05:35 108 20 131/86 (101) 99 Non Rebreather 15.00 11/15/18 05:20 103 20 128/77 (94) 100 Non Rebreather 15.00 11/15/18 05:05 96 20 123/73 (90) 100 Non Rebreather 15.00 11/15/18 04:48 102 20 122/69 (86) 98 Non Rebreather 15.00 11/15/18 04:43 92 20 117/67 (84) 98 Non Rebreather 15.00 11/15/18 04:40 92 20 119/67 (84) 98 Non Rebreather 15.00 11/15/18 04:38 98 20 123/67 (85) 98 Non Rebreather 15.00 11/15/18 04:35 104 20 128/69 (88) 96 Non Rebreather 15.00 11/15/18 04:30 107 20 117/68 (84) 96 Room Air 11/15/18 04:28 107 20 117/63 (81) 95 Room Air 11/15/18 04:25 97.9 100 20 123/69 (87) 95 Room Air 11/15/18 04:15 100 20 126/70 (88) 95 Room Air 11/15/18 04:10 87 20 130/80 (97) 95 Room Air 11/15/18 04:05 110 20 138/90 (106) 95 Room Air 11/15/18 04:00 115 20 121/58 (79) 95 Room Air 11/15/18 03:45 116 20 150/100 (117) 91 Room Air 11/15/18 03:30 108 20 140/70 (93) 96 Non Rebreather 15.00 11/15/18 03:15 108 20 129/83 (98) 100 Non Rebreather 15.00 11/15/18 03:00 109 20 147/76 (99) 100 Non Rebreather 15.00 11/15/18 02:45 105 20 154/87 (109) 98 Non Rebreather 15.00 11/15/18 02:30 92 20 120/66 (84) 98 Non Rebreather 15.00 11/15/18 02:15 105 20 125/75 (92) 99 Non Rebreather 15.00 11/15/18 02:00 97 20 138/79 (98) 100 Non Rebreather 15.00 11/15/18 01:45 98.0 101 20 141/89 (106) 100 Non Rebreather 15.00 11/15/18 01:30 106 20 136/77 (96) 100 Non Rebreather 15.00 11/15/18 01:15 100 18 142/84 (103) 96 Room Air 11/15/18 01:00 88 18 146/83 (104) 98 Room Air 11/15/18 00:40 106 18 140/79 (99) 98 Room Air 11/15/18 00:30 98.1 100 18 136/83 (100) 98 Room Air 11/15/18 00:15 103 18 134/83 (100) 98 Room Air 11/15/18 00:00 97 18 136/80 (98) 97 Room Air 11/14/18 23:45 101 18 131/77 (95) 98 Room Air 11/14/18 23:30 101 18 135/80 (98) 95 Room Air 11/14/18 23:15 93 18 140/72 (94) 98 Room Air 11/14/18 23:00 95 18 134/72 (92) 94 Room Air 11/14/18 22:45 93 18 144/78 (100) 97 Room Air 11/14/18 22:30 89 18 131/79 (96) 98 Room Air 11/14/18 22:15 91 18 138/75 (96) 98 Room Air 11/14/18 22:00 87 18 147/79 (101) 98 Room Air 11/14/18 21:45 87 18 141/82 (101) 100 Room Air 11/14/18 21:30 88 18 133/78 (96) 100 Room Air 11/14/18 21:15 84 18 133/80 (97) 100 Room Air 11/14/18 21:00 88 18 141/88 (105) 100 Room Air 11/14/18 20:45 85 18 134/83 (100) 99 Room Air 11/14/18 20:30 87 18 130/78 (95) 99 Room Air 11/14/18 20:15 86 18 133/78 (96) 99 Room Air 11/14/18 20:00 97.9 90 20 136/75 (95) 99 Room Air 11/14/18 19:45 84 20 141/79 (99) 99 Room Air 11/14/18 19:30 93 20 130/84 (99) 99 Room Air 11/14/18 19:15 93 20 144/70 (94) 98 Room Air 11/14/18 19:00 90 20 132/83 (99) 99 Room Air 11/14/18 18:40 98.3 103 20 136/92 (107) 99 Room Air 11/14/18 18:05 86 20 143/82 (102) 98 Room Air 11/14/18 17:50 100 20 148/87 (107) Room Air 11/14/18 17:45 96 22 142/90 (107) 11/14/18 17:30 101 22 167/105 (125) 11/14/18 17:30 98.3 96 20 142/90 (107) Room Air 11/14/18 17:20 93 20 162/104 (123) Room Air 11/14/18 16:15 92 20 136/96 (109) Room Air 11/14/18 16:00 91 20 145/90 (108) Room Air 11/14/18 15:45 90 20 138/96 (110) Room Air 11/14/18 15:30 81 20 139/94 (109) Room Air 11/14/18 15:15 93 20 148/95 (112) Room Air 11/14/18 15:00 81 20 143/96 (112) Room Air 11/14/18 14:45 88 20 154/101 (118) Room Air 11/14/18 14:30 88 20 140/91 (107) Room Air 11/14/18 14:15 86 20 146/94 (111) Room Air 11/14/18 14:00 83 20 138/86 (103) Room Air 11/14/18 13:30 86 20 133/87 (102) Room Air 11/14/18 13:00 77 20 133/84 (100) Room Air 11/14/18 12:30 97.2 97 20 135/93 (107) Room Air I & O 11/15/18 06:59 Intake Total 4600 ml Output Total 4000 ml Balance 600 ml Labs Laboratory Tests 11/14/18 12:09: White Blood Count 8.9, Red Blood Count 4.95, Hemoglobin 14.5, Hematocrit 41, Mean Corpuscular Volume 84, Mean Corpuscular Hemoglobin 29, Mean Corpuscular Hemoglobin Concent 35, Red Cell Distribution Width 13.7, Platelet Count 236, Mean Platelet Volume 11.9H, Neutrophils (%) (Auto) 63, Lymphocytes (%) (Auto) 24 , Monocytes (%) (Auto) 11, Eosinophils (%) (Auto) 1, Basophils (%) (Auto) 0, Neutrophils # (Auto) 5.7, Lymphocytes # (Auto) 2.2, Monocytes # (Auto) 1.0, Eosinophils # (Auto) 0.1, Basophils # (Auto) 0.0, Sodium Level 139, Potassium Level 3.9, Chloride Level 108H, Carbon Dioxide Level 17L, Anion Gap 14, Blood Urea Nitrogen 10, Creatinine 0.60, Estimat Glomerular Filtration Rate > 60, BUN/ Creatinine Ratio 17, Glucose Level 93, Uric Acid 6.6, Calcium Level 9.7, Corrected Calcium 10.3H, Magnesium Level 1.9, Total Bilirubin 0.6, Aspartate Amino Transf (AST/SGOT) 26, Alanine Aminotransferase (ALT/SGPT) 65H, Alkaline Phosphatase 312H, Lactate Dehydrogenase 294H, Total Protein 6.7, Albumin 3.2 11/14/18 12:35: Urine Color YELLOW, Urine Clarity CLEAR, Urine pH 6, Urine Specific [place] 1.015L, Urine Protein 112H, Urine Glucose (UA) NEGATIVE, Urine Ketones NEGATIVE , Urine Nitrite NEGATIVE, Urine Bilirubin NEGATIVE, Urine Urobilinogen 1, Urine Leukocyte Esterase NEGATIVE, Urine RBC (Auto) NEGATIVE, Urine RBC NONE, Urine WBC 0-2, Urine Squamous Epithelial Cells 0-2, Urine Renal Epithelial Cells NONE , Urine Crystals NONE, Urine Bacteria TRACE, Urine Casts PRESENT, Urine Hyaline Casts RARE, Urine Granular Casts RARE, Urine Mucus NEGATIVE, Urine Culture Indicated NO, Urine Creatinine 49, Urine Protein/Creatinine Ratio 2.29 11/14/18 22:29: Magnesium Level 5.2#*H 11/15/18 04:35: Magnesium Level 5.6*H BRENT CEJA MD November 15, 2018 09:03
--- NOTE | 2018-11-15 09:20 | NUR ---
FFu/2. POC reviewed via medical bill processor. states understanding.
[2018-11-15] MEDS ORDERED: LACTATED RINGERS 1,000 ML IV SCH ×2 (10:05→10:13)
--- NOTE | 2018-11-15 11:40 | NUR ---
#16 bruneian bullard catheter inserted by this RN per Dr's orders. immediate return of clear, yellow urine noted in chamber. FFU/2. lt rubra noted. no clots expressed. bryson-care offered. v-pad and panties in place.
--- NOTE | 2018-11-15 11:50 | NUR ---
pt transferred to room 312 via w/c with this RN and friends @ side. call light within reach. Czech lunch menu given to pt. will cont to monitor.
[2018-11-15] MEDS: IBUPROFEN 600 MG (MOTRIN) TAB PO SCH ×2 (13:50→17:25)
[2018-11-15] MEDS ORDERED: CATHETER FLUSH 10 ML SYR IV SCH (14:00)
--- NOTE | 2018-11-15 14:30 | NUR ---
resting with unlabored respirations. no sx's of distress noted
--- NOTE | 2018-11-15 16:30 | NUR ---
Lab here for Mag level.
--- NOTE | 2018-11-15 16:50 | NUR ---
assisted up to w/c. into nursery to ramirez with . s/o @ side.
--- NOTE | 2018-11-15 16:54 | NUR ---
5.5 Mag level given to order received to d/c and juan miguel @ [phone].
--- NOTE | 2018-11-15 17:21 | NUR ---
back to room. POC reviewed r/t Magnesium and F/C dc'ing @ 1900 via farm equipment service technician. family @ side. requesting pain medication.
--- NOTE | 2018-11-15 17:25 | NUR ---
Scheduled Motrin p.o. given, see eMar for further.
--- NOTE | 2018-11-15 19:15 | NUR ---
bullard catheter dc'd per Dr's orders. 1200cc clear, yellow urine noted. bryson-care offered. v-pad and panties in place.magnesium infusion off. IV converted to HL.
--- NOTE | 2018-11-15 19:32 | NUR ---
report given to RAYRAY Augustine.
[2018-11-16] MEDS: IBUPROFEN 600 MG (MOTRIN) TAB PO SCH ×5 (00:10→23:35)
[2018-11-16 02:30] VITALS: BP 129/82
[2018-11-16 06:14] VITALS: BP 135/90
[2018-11-16 06:19] LABS: BASOPHILS % (AUTO) 0 % (0-10); EOSINOPHILS # (AUTO) 0.2 10^3/uL (0.0-0.3); EOSINOPHILS % (AUTO) 1 % (0-10); HEMATOCRIT 37 % (35-52); HEMOGLOBIN 12.6 G/DL (11.5-16.0); LYMPHOCYTES # (AUTO) 3.3 X 10^3 (1.0-4.0); LYMPHOCYTES % (AUTO) 28 % (12-44); MEAN CORPUSCULAR HEMOGLOBIN 29 PG (25-34); MEAN CORPUSCULAR HGB CONC 34 G/DL (32-36); MEAN CORPUSCULAR VOLUME 85 FL (80-99); MEAN PLATELET VOLUME 11.4 FL (7.4-10.4); MONOCYTES % (AUTO) 8 % (0-12); NEUTROPHILS # (AUTO) 7.5 X 10^3 (1.8-7.8); NEUTROPHILS % (AUTO) 63 % (42-75); PLATELET COUNT 205 10^3/uL (130-400); RED CELL DISTRIBUTION WIDTH 13.8 % (10.0-14.5)
--- NOTE | 2018-11-16 08:14 | Anesthesia-Regional Post-Op ---
Regional Patient Condition Mental Status: Alert, Oriented x3 Circulation: Same as Pre-Op Headache: Absent Sensation: Full Recovery Motor Block: Absent Post Op Complications Complications None Follow Up Care/Instructions Patient Instructions None needed. Anesthesia/Patient Condition Patient is doing well, no complaints, stable vital signs, no apparent adverse anesthesia problems. No complications reported per nursing. YOLANDE BOYLE CRNA November 16, 2018 08:14
[2018-11-16] MEDS ORDERED: IBUP-844 PO (09:05)
--- NOTE | 2018-11-16 09:06 | Discharge Instructions ---
Discharge Inst-Women's Serv Depart Medications New, Converted or Re-Newed RX: Transmitted to Pharmacy New Medications: Ibuprofen (Ibu) 600 Mg Tablet 600 MG PO Q6HR PRN for PAIN-MODERATE, #60 TAB 0 Refills Continued Medications: Vit W-Ca,Fe,FA(<1 mg) ( Vitamins) 1 Each Tablet 1 TAB PO DAILY, TAB Follow Up/Instructions Goal/Follow Up: Follow up with Dr. Carlos for visit in 6 weeks. Activity Activity: Activity as Tolerated (avoid strenuous activity x 6 weeks) Nothing Inside Vagina: No Douching, No [place], No Tampons Diet Discharge Diet: Regular Diet Symptoms to Report to : Swelling Increased, Bleeding Excessive, Fever Over 101 Degrees F, Pain/Pressure in Chest, Vaginal Bleeding Increase, Cramps in Feet or Legs, Vaginal Discharge Foul, Dizziness/Fainting, Nausea/Vomiting, Shortness of Breath For Any Problems or Questions: Contact Your Physician Copies To 1: BRENT CARLOS MD, BETHANY N MD November 16, 2018 09:06
[2018-11-16 09:15] VITALS: BP 129/78
--- NOTE | 2018-11-16 09:15 | NUR ---
initial shift assessment completed, see interventions for further.
--- NOTE | 2018-11-16 11:46 | NUR ---
Alejo Soliz here.
[2018-11-16 12:10] VITALS: BP 140/87
--- NOTE | 2018-11-16 13:32 | Progress Note (SOAP) ---
Subjective Subjective/Events-last exam Afebrile, blood pressure improved. Good UOP. She denies headache, abdominal pain. Lochia minimal. Denies dizziness, shortness of breath. Review of Systems Date Seen by Provider: November 16, 2018 Time Seen by Provider: 11:35 Objective Exam Last Set of Vital Signs Vital Signs Date Time Temp Pulse Resp B/P (MAP) Pulse Ox O2 Delivery O2 Flow Rate FiO2 11/16/18 12:10 97.5 72 18 140/87 (104) 99 Room Air 11/15/18 07:00 15.00 Capillary Refill : I&O Intake and Output 11/16/18 00:00 Intake Total 3740 ml Output Total 6425 ml Balance -2685 ml Intake Oral 240 ml IV Total 3500 ml Output Urine Total 6425 ml General: Alert, No Acute Distress Lungs: Clear to Auscultation, Normal Air Movement Heart: Regular Rate, No Murmurs Abdomen: Other (fundus firm at umbilicus) Neuro: Normal Speech Psych/Mental Status: Mental Status NL Results/Procedures Lab Laboratory Tests 11/15/18 16:30: Magnesium Level 5.5*H 11/16/18 05:50: White Blood Count 12.0H, Red Blood Count 4.39, Hemoglobin 12.6, Hematocrit 37, Mean Corpuscular Volume 85, Mean Corpuscular Hemoglobin 29, Mean Corpuscular Hemoglobin Concent 34, Red Cell Distribution Width 13.8, Platelet Count 205, Mean Platelet Volume 11.4H, Neutrophils (%) (Auto) 63, Lymphocytes (%) (Auto) 28 , Monocytes (%) (Auto) 8, Eosinophils (%) (Auto) 1, Basophils (%) (Auto) 0, Neutrophils # (Auto) 7.5, Lymphocytes # (Auto) 3.3, Monocytes # (Auto) 1.0, Eosinophils # (Auto) 0.2, Basophils # (Auto) 0.0 Microbiology 11/14/18 Urine Culture - Final, Complete Lactobacillus species See Comments Assessment/Plan Assessment/Plan (1) (spontaneous vaginal delivery) Status: Acute Assessment & Plan: Routine care (2) Preeclampsia Status: Resolved Assessment & Plan: Completed treatment with magnesium, BP good and good diuresis. Asymptomatic. Qualifiers: Qualified Codes: O14.93 - Unspecified pre-eclampsia, third trimester (3) Cholestasis during Status: Acute Assessment & Plan: Repeat CMP in the am. Qualifiers: Qualified Codes: O26.613 - Liver and biliary tract disorders in , third trimester; K83.1 - Obstruction of bile duct Clinical Quality Measures DVT/VTE Risk/Contraindication: Risk Factor Score Per Nursin RFS Level Per Nursing on Admit: 1=Low/No VTE PPX CINTIA KIM MD November 16, 2018 13:32
[2018-11-16 18:00] VITALS: BP 162/89
--- NOTE | 2018-11-16 19:14 | NUR ---
report given to RAYRAY Augustine.
[2018-11-16 23:35] VITALS: BP 145/95
[2018-11-17 05:30] VITALS: BP 127/85
[2018-11-17] MEDS: IBUPROFEN 600 MG (MOTRIN) TAB PO SCH (05:49)
[2018-11-17 07:04] LABS: ALANINE AMINOTRANSFERASE 16 U/L (0-55); ALBUMIN 2.9 GM/DL (3.2-4.5); ALKALINE PHOSPHATASE 150 U/L (40-136); BILIRUBIN,TOTAL 0.2 MG/DL (0.1-1.0); BUN/CREATININE RATIO 8; CALCIUM 8.4 MG/DL (8.5-10.1); CARBON DIOXIDE 19 MMOL/L (21-32); CHLORIDE 107 MMOL/L (98-107); CREATININE SERUM 0.63 MG/DL (0.60-1.30); GFR ESTIMATED > 60; GLUCOSE 102 MG/DL (70-105); POTASSIUM 4.1 MMOL/L (3.6-5.0); SODIUM 135 MMOL/L (135-145); TOTAL PROTEIN 5.3 GM/DL (6.4-8.2)
[2018-11-17 07:30] VITALS: BP 126/83
--- NOTE | 2018-11-17 07:46 | Discharge Summary ---
Diagnosis/Chief Complaint Date of Admission Nov 14, 2018 at 11:35 Date of Discharge November 17, 2018 Admission Diagnosis Admission Diagnosis 37 weeks gestation Cholestasis of Discharge Diagnosis See problem list Problems/Diagnosis: (1) (spontaneous vaginal delivery) Assessment & Plan: Routine care Status: Acute (2) Preeclampsia Assessment & Plan: Completed treatment with magnesium, BP good and good diuresis. Asymptomatic. Qualifiers: Qualified Codes: O14.93 - Unspecified pre-eclampsia, third trimester Status: Resolved Resolution Date/Time: 11/16/18 @ 13:28 (3) Cholestasis during Assessment & Plan: Repeat CMP with normalized AST/ALT Qualifiers: Qualified Codes: O26.613 - Liver and biliary tract disorders in , third trimester; K83.1 - Obstruction of bile duct Status: Acute Chief Complaint/HPI Chief Complaint/HPI G1 sent for IOL due to diagnosis of cholestasis at 37 weeks. Discharge Summary-Simple/Stand Procedures Spontaneous vaginal delivery Discharge Physical Examination Allergies: Coded Allergies: No Known Drug Allergies (Unverified , 11/14/18) Vitals & I&Os Vital Sign - Last 12Hours Date Time Temp Pulse Resp B/P (MAP) Pulse Ox O2 Delivery O2 Flow Rate FiO2 11/17/18 05:30 98.5 72 20 127/85 (99) 98 Room Air 11/15/18 07:00 15.00 Intake and Output 11/17/18 00:00 Intake Total 480 ml Output Total 4000 ml Balance -3520 ml General Appearance: Alert, No Acute Distress Respiratory: Clear to Auscultation, Normal Air Movement Cardiovascular: Regular Rate, No Murmurs Neuro: Normal Speech Psych/Mental Status: Mood NL Hospital Course See final discharge diagnosis. Labs Laboratory Tests Test 11/15/18 16:30 11/16/18 05:50 11/17/18 06:33 Range/Units Magnesium Level 5.5 *H 1.8-2.4 MG/DL White Blood Count 12.0 H 4.3-11.0 10^3/uL Red Blood Count 4.39 4.35-5.85 10^6/uL Hemoglobin 12.6 11.5-16.0 G/DL Hematocrit 37 35-52 % Mean Corpuscular Volume 85 80-99 FL Mean Corpuscular Hemoglobin 29 25-34 PG Mean Corpuscular Hemoglobin Concent 34 32-36 G/DL Red Cell Distribution Width 13.8 10.0-14.5 % Platelet Count 205 130-400 10^3/uL Mean Platelet Volume 11.4 H 7.4-10.4 FL Neutrophils (%) (Auto) 63 42-75 % Lymphocytes (%) (Auto) 28 12-44 % Monocytes (%) (Auto) 8 0-12 % Eosinophils (%) (Auto) 1 0-10 % Basophils (%) (Auto) 0 0-10 % Neutrophils # (Auto) 7.5 1.8-7.8 X 10^3 Lymphocytes # (Auto) 3.3 1.0-4.0 X 10^3 Monocytes # (Auto) 1.0 0.0-1.0 X 10^3 Eosinophils # (Auto) 0.2 0.0-0.3 10^3/uL Basophils # (Auto) 0.0 0.0-0.1 10^3/uL Sodium Level 135 135-145 MMOL/L Potassium Level 4.1 3.6-5.0 MMOL/L Chloride Level 107 98-107 MMOL/L Carbon Dioxide Level 19 L 21-32 MMOL/L Anion Gap 9 5-14 MMOL/L Blood Urea Nitrogen 5 L 7-18 MG/DL Creatinine 0.63 0.60-1.30 MG/DL Estimat Glomerular Filtration Rate > 60 BUN/Creatinine Ratio 8 Glucose Level 102 70-105 MG/DL Calcium Level 8.4 L 8.5-10.1 MG/DL Corrected Calcium 9.3 8.5-10.1 MG/DL Total Bilirubin 0.2 0.1-1.0 MG/DL Aspartate Amino Transf (AST/SGOT) 24 5-34 U/L Alanine Aminotransferase (ALT/SGPT) 16 0-55 U/L Alkaline Phosphatase 150 H 40-136 U/L Total Protein 5.3 L 6.4-8.2 GM/DL Albumin 2.9 L 3.2-4.5 GM/DL Discharge Instructions to patient/family Please see electronic discharge instructions given to patient. Discharge Medications Reviewed and agree with Discharge Medication list on patient's Discharge Instruction sheet Clinical Quality Measures DVT/VTE Risk/Contraindication: Risk Factor Score Per Nursin RFS Level Per Nursing on Admit: 1=Low/No VTE PPX Copy Copies To 1: BRENT CEJA MD, BETHANY N MD November 17, 2018 07:46
[2018-11-17] MEDS ORDERED: MEASLES,MUMPS,RUBELLA 1 EA INJ ONE (10:56)
--- NOTE | 2018-11-17 11:15 | NUR ---
Gave MMR in rt deltoid - informed pt not to become in 3mo due to live virus and damaging to fetus. Used translation from [place] to [place] via phone.
--- NOTE | 2018-11-17 13:20 | NUR ---
Language line used to give pp home instructions - pt verbalized understanding. Boarder mom explained about no nursing care to pt, meds called in to [facility], meals for the mom, and one parent must stay with the child at all times.
== END 2018-11-17 14:25 | disposition home or self-care (01) | DRG 805 ==
LOC: LDRP 11:35
PROVIDERS: ADMIT Family Medicine; ATTEND Family Medicine
PROC: 10E0XZZ Delivery of Products of Conception, External Approach (ICD-10-PCS; principal; 2018-11-15)
PROC: 0KQM0ZZ Repair Perineum Muscle, Open Approach (ICD-10-PCS; 2018-11-15)
PROC: 3E033VJ Introduction of Other Hormone into Peripheral Vein, Percutaneous Approach (ICD-10-PCS; 2018-11-15)
DX: O14.94 Unspecified pre-eclampsia, complicating childbirth (principal); O26.613 Liver and biliary tract disorders in pregnancy, third trimester; K83.1 Obstruction of bile duct; O70.1 Second degree perineal laceration during delivery; Z3A.37 37 weeks gestation of pregnancy; Z37.0 Single live birth; Z23 Encounter for immunization
CPT/HCPCS: 36415; 80053; 81000; 82570; 83615; 83735; 84156; 84550; 85025; 86850; 86900; 86901; 87088; 90707

== ENCOUNTER 2020-05-22 04:35 | Emergency (ER) | payer BC, OTHER ==
[~2020-05-22] VITALS: Ht 152 cm; Wt 63.9 kg
[~2020-05-22 04:35] MED LIST: IBUP-844 PO; PREN1TAB79 PO
[2020-05-22 06:02] LABS: BASOPHILS # (AUTO) 0.1 10^3/uL (0.0-0.1); BASOPHILS % (AUTO) 1 % (0-10); EOSINOPHILS # (AUTO) 0.1 10^3/uL (0.0-0.3); EOSINOPHILS % (AUTO) 2 % (0-10); HEMATOCRIT 42 % (35-52); HEMOGLOBIN 14.5 g/dL (11.5-16.0); LYMPHOCYTES # (AUTO) 2.3 10^3/uL (1.0-4.0); LYMPHOCYTES % (AUTO) 24 % (12-44); MEAN CORPUSCULAR HEMOGLOBIN 30 pg (25-34); MEAN CORPUSCULAR HGB CONC 34 g/dL (32-36); MEAN CORPUSCULAR VOLUME 87 fL (80-99); MEAN PLATELET VOLUME 9.7 fL (9.0-12.2); MONOCYTES % (AUTO) 10 % (0-12); NEUTROPHILS # (AUTO) 6.1 10^3/uL (1.8-7.8); NEUTROPHILS % (AUTO) 63 % (42-75); PLATELET COUNT 308 10^3/uL (130-400); WHITE BLOOD COUNT 9.7 10^3/uL (4.3-11.0)
--- NOTE | 2020-05-22 06:02 | ED GU-Female ---
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 HAS NOT TAKEN ANYTHING FOR PAIN NO NAUSEA/VOMITING NO URINARY SYMPTOMS NO FEVER NO COUGH OR RECENT ILLNESS STATES HER LMP WAS IN SEPTEMBER SOMETIME, AND THEN DID A HOME TEST THIS WEEK AND IT WAS POSITIVE. STATES SHE HAD NEGATIVE TESTS SINCE SEPTEMBER. CALLED CLINIC YESTERDAY AND HAS AN APPOINTMENT IN JUNE PT HAS NOT SOUGHT CARE AT ANY TIME UNTIL NOW PT STATES SHE IS NOW AB0--HAD NORMAL DELIVERY NOVEMBER 2018 PCP: DONNELL Allergies and Home Medications Allergies Coded Allergies: No Known Drug Allergies (Unverified , 11/14/18) Home Medications Ibuprofen 600 Mg Tablet, 600 MG PO Q6HR PRN for PAIN-MODERATE Prescribed by: CINTIA KIM on 11/16/18 0905 Vit W-Ca,Fe,FA(<1 mg) 1 Each Tablet, 1 TAB PO DAILY, (Reported) Patient Home Medication List Home Medication List Reviewed: Yes Review of Systems Review of Systems Constitutional: no symptoms reported; No dizziness, No fever Respiratory: no symptoms reported Cardiovascular: no symptoms reported Gastrointestinal: see HPI, abdominal pain; No diarrhea, No nausea, No vomiting Genitourinary: see HPI : Yes LMP: Sep 16, 2019 Musculoskeletal: see HPI, back pain Skin: no symptoms reported Psychiatric/Neurological: No Symptoms Reported Endocrine: No Symptoms Reported Past [place]q-Foonop-Jtrzel Hx Past Med/Social Hx: Reviewed and Corrections made Patient Social History Alcohol Use: Occasionally Uses Recreational Drug Use: No Smoking Status: Never a Smoker Recent Foreign Travel: No Contact w/Someone Who Travel: No Recent Hopitalizations: No Immunizations Up To Date Tetanus Booster (TDap): Less than 5yrs PED Vaccines UTD: Yes Seasonal Allergies Seasonal Allergies: No Past Medical History Surgeries: No Respiratory: No Cardiac: No Neurological: No Hx : 2 Hx Para: 1 Hx Total # of Abortions (Sp): 0 Reproductive Disorders: No Sexually Transmitted Disease: No HIV/AIDS: No Genitourinary: No Gastrointestinal: No Musculoskeletal: No Endocrine: Yes (CHOLECYSTITIS OF ) HEENT: No Cancer: No Psychosocial: No Integumentary: No Blood Disorders: No Adverse Reaction/Blood Tranf: No Family Medical History Patient reports no known family medical history. Physical Exam Vital Signs Vital Signs - First Documented 05/22/20 05:45 Temp 36.4 Pulse 100 Resp 16 B/P (MAP) 136/89 (105) O2 Delivery Room Air Capillary Refill : Height, Weight, BMI Height: 5'0.00" Weight: 150lbs. 0.0oz. [id number]; 29.3 BMI Method: General Appearance: WD/WN, no apparent distress Cardiovascular: regular rate, rhythm, no murmur Respiratory: normal breath sounds, no respiratory distress, no accessory muscle use Gastrointestinal: normal bowel sounds, soft, tenderness (SUPRAPUBIC TENDERNESS) Pelvic: normal external exam, normal adnexa, no cerv. motion tender, no masses; No tender adnexa; tender uterus, vaginal bleeding, other (MILD AMOUNT OF BLOOD IN CANAL . NO CLOTS, CERVIX CLOSED. UTERUS IS NOT NOTICEABLY ENLARGED) Back: no CVA tenderness Extremities: normal inspection, normal capillary refill Neurologic/Psychiatric: no motor/sensory deficits, alert, normal mood/affect Skin: normal color, warm/dry Progress/Results/Core Measures Suspected Sepsis SIRS Temperature: Pulse: Respiratory Rate: Laboratory Tests 05/22/20 05:50: White Blood Count 9.7 Blood Pressure / Mean: Laboratory Tests 05/22/20 05:50: Platelet Count 308 Results/Orders Lab Results Laboratory Tests Test 05/22/20 05:50 Range/Units White Blood Count 9.7 4.3-11.0 10^3/uL Red Blood Count 4.89 3.80-5.11 10^6/uL Hemoglobin 14.5 11.5-16.0 g/dL Hematocrit 42 35-52 % Mean Corpuscular Volume 87 80-99 fL Mean Corpuscular Hemoglobin 30 25-34 pg Mean Corpuscular Hemoglobin Concent 34 32-36 g/dL Red Cell Distribution Width 12.1 10.0-14.5 % Platelet Count 308 130-400 10^3/uL Mean Platelet Volume 9.7 9.0-12.2 fL Immature Granulocyte % (Auto) 0 % Neutrophils (%) (Auto) 63 42-75 % Lymphocytes (%) (Auto) 24 12-44 % Monocytes (%) (Auto) 10 0-12 % Eosinophils (%) (Auto) 2 0-10 % Basophils (%) (Auto) 1 0-10 % Neutrophils # (Auto) 6.1 1.8-7.8 10^3/uL Lymphocytes # (Auto) 2.3 1.0-4.0 10^3/uL Monocytes # (Auto) 1.0 0.0-1.0 10^3/uL Eosinophils # (Auto) 0.1 0.0-0.3 10^3/uL Basophils # (Auto) 0.1 0.0-0.1 10^3/uL Immature Granulocyte # (Auto) 0.0 0.0-0.1 10^3/uL Urine Color YELLOW Urine Clarity CLEAR Urine pH 6.0 5-9 Urine Specific Wilber <=1.005 1.016-1.022 Urine Protein NEGATIVE NEGATIVE Urine Glucose (UA) NEGATIVE NEGATIVE Urine Ketones NEGATIVE NEGATIVE Urine Nitrite NEGATIVE NEGATIVE Urine Bilirubin NEGATIVE NEGATIVE Urine Urobilinogen 0.2 < = 1.0 MG/DL Urine Leukocyte Esterase NEGATIVE NEGATIVE Urine RBC (Auto) 1+ H NEGATIVE Urine RBC 2-5 H /HPF Urine WBC NONE /HPF Urine Squamous Epithelial Cells 2-5 /HPF Urine Crystals NONE /LPF Urine Bacteria NEGATIVE /HPF Urine Casts NONE /LPF Urine Mucus NEGATIVE /LPF Urine Culture Indicated NO Urine Test POSITIVE NEGATIVE Human Chorionic Gonadotropin, Quant 172 H <5 MIU/ML My Orders Orders - MAICOL DENISE DO Cbc With Automated Diff (05/22/20 05:54) Hcg,Qualitative Urine (05/22/20 05:54) Hcg,Quantitative (05/22/20 05:54) Ua Culture If Indicated (05/22/20 05:54) Heart Tones (05/22/20 05:56) Vital Signs/I&O 05/22/20 05:45 Temp 36.4 Pulse 100 Resp 16 B/P (MAP) 136/89 (105) O2 Delivery Room Air Capillary Refill : Progress Note : Progress Note DID NOT SATURATE ANY PADS DURING ER STAY UNABLE TO DETECT FHT'S NO ULTRASOUND AVAILABLE HERE AT THIS TIME BLOOD TYPE O+ Departure Impression Primary Impression: Threatened miscarriage in early Disposition: 01 HOME, SELF-CARE Condition: Stable Departure-Patient Inst. Referrals: [facility] (PCP/Family) Primary Care Physician Patient Instructions: Threatened Miscarriage (DC), Bleeding In Early Add. Discharge Instructions: NOTHING IN VAGINA--NO TAMPONS, DOUCHING OR INTERCOURSE LOTS OF FLUIDS TYLENOL NEEDED FOR PAIN CONTINUE VITAMINS KEEP AN ACCURATE PAD COUNT--RETURN IF SOAKING MORE THAN 1 MAXI PAD AN HOUR FOLLOW UP WITH [facility] IN 1-2 DAYS FOR FURTHER CARE RETURN TO ER IF SYMPTOMS WORSEN All discharge instructions reviewed with patient and/or family. Voiced understanding. MAICOL DENISE DO May 22, 2020 06:02
[2020-05-22 06:05] LABS: BILIRUBIN,URINE NEGATIVE (NEGATIVE); CLARITY,URINE CLEAR; COLOR,URINE YELLOW; GLUCOSE, URINE (UA) NEGATIVE (NEGATIVE); KETONES,URINE NEGATIVE (NEGATIVE); LEUKOCYTE ESTERASE ,URINE NEGATIVE (NEGATIVE); NITRITE,URINE NEGATIVE (NEGATIVE); PROTEIN,URINE NEGATIVE (NEGATIVE)
--- NOTE | 2020-05-22 06:07 | NUR ---
NOLA FROM LAB CALLED TO REPORT PT BLOOD TYPE O+ PER PAST RECORDS.
[2020-05-22 06:12] LABS: BACTERIA,URINE NEGATIVE /HPF
[2020-05-22 06:55] VITALS: BP 127/81
== END 2020-05-22 06:55 | disposition home or self-care (01) ==
LOC: EDUNIT# 04:35 → ER 04:40
DX: O20.0 Threatened abortion (principal); Z3A.00 Weeks of gestation of pregnancy not specified
CPT/HCPCS: 36415; 81000; 84702; 84703; 85025

== ENCOUNTER 2021-01-07 14:48 | Outpatient (CLI) | payer OTHER, BC ==
[~2021-01-07] VITALS: Ht 153 cm; Wt 68.9 kg
[2021-01-07 14:00] VITALS: BP 122/63
[2021-01-07 16:00] VITALS: BP 122/63
[2021-01-07] MEDS ORDERED: ASPI-999 PO (19:08)
--- NOTE | 2021-01-08 08:05 | Physician Query-Final Dx ---
MARIA L RUSS 01/08/21 0805: Clinic Account Progress/Dx Physician Query: Please give diagnosis Please include # weeks gestation Date of Service Jan 07, 2021 at 14:48 CINTIA KIM MD 01/08/21 2250: Clinic Account Progress/Dx DIAGNOSIS: Diagnosis Fall in 31 weeks gestation MARIA L RUSS Jan 08, 2021 08:05 CINTIA KIM MD Jan 08, 2021 22:50
== END 2021-01-07 19:45 | disposition home or self-care (01) ==
LOC: WSo 14:48 → LDRP 14:49 → WSo 19:45
PROVIDERS: ATTEND Family Medicine
DX: O9A.213 Injury, poisoning and certain other consequences of external causes complicating pregnancy, third trimester (principal); Z3A.31 31 weeks gestation of pregnancy
CPT/HCPCS: 99213

== ENCOUNTER 2021-02-24 18:43 | Inpatient (IN) | payer BC ==
[~2021-02-24] VITALS: Ht 152.4 cm; Wt 72.6 kg
[~2021-02-24 18:43] MED LIST changes: +ASPI-999 PO
[2021-02-24 19:30] VITALS: BP 129/82
[2021-02-24] MEDS ORDERED: LACTATED RINGERS 1,000 ML IV SCH (19:30)
[2021-02-24] MEDS ORDERED: MINERAL OIL CONCENTRATE 99.9% 15 ML UDC TOP PRN (19:30)
[2021-02-24] MEDS ORDERED: TERBUTALINE INJ 1 MG/ML (BRETHINE) AMP SC PRN (19:30)
[2021-02-24 19:39] LABS: BILIRUBIN,URINE NEGATIVE (NEGATIVE); CLARITY,URINE SL CLOUDY; COLOR,URINE YELLOW; GLUCOSE, URINE (UA) NEGATIVE (NEGATIVE); KETONES,URINE NEGATIVE (NEGATIVE); LEUKOCYTE ESTERASE ,URINE NEGATIVE (NEGATIVE); NITRITE,URINE NEGATIVE (NEGATIVE); PH,URINE 6.5 (5-9); PROTEIN,URINE NEGATIVE (NEGATIVE)
[2021-02-24 19:57] LABS: AMORPHOUS SEDIMENT,UR RARE AMOR URATES /LPF; BACTERIA,URINE TRACE /HPF; RBC,URINE 0-2 /HPF
[2021-02-24 20:00] VITALS: BP 129/82
[2021-02-24 20:13] LABS: ALBUMIN 3.5 GM/DL (3.2-4.5); BASOPHILS % (AUTO) 0 % (0-10); EOSINOPHILS # (AUTO) 0.1 10^3/uL (0.0-0.3); EOSINOPHILS % (AUTO) 1 % (0-10); HEMATOCRIT 35 % (35-52); HEMOGLOBIN 11.7 g/dL (11.5-16.0); LYMPHOCYTES # (AUTO) 2.4 10^3/uL (1.0-4.0); LYMPHOCYTES % (AUTO) 20 % (12-44); MEAN CORPUSCULAR HEMOGLOBIN 26 pg (25-34); MEAN CORPUSCULAR HGB CONC 33 g/dL (32-36); MEAN CORPUSCULAR VOLUME 79 fL (80-99); MEAN PLATELET VOLUME 10.6 fL (9.0-12.2); MONOCYTES # (AUTO) 1.1 10^3/uL (0.0-1.0); MONOCYTES % (AUTO) 9 % (0-12); NEUTROPHILS # (AUTO) 8.6 10^3/uL (1.8-7.8); NEUTROPHILS % (AUTO) 70 % (42-75); PLATELET COUNT 291 10^3/uL (130-400); POTASSIUM 3.6 MMOL/L (3.6-5.0); WHITE BLOOD COUNT 12.4 10^3/uL (4.3-11.0)
[2021-02-24 20:14] LABS: CALCIUM 9.3 MG/DL (8.5-10.1)
[2021-02-24 20:16] LABS: TOTAL PROTEIN 7.2 GM/DL (6.4-8.2)
[2021-02-24 20:17] LABS: BILIRUBIN,TOTAL 0.3 MG/DL (0.1-1.0)
[2021-02-24 20:19] LABS: CREATININE SERUM 0.55 MG/DL (0.60-1.30)
[2021-02-24] MEDS: D5 LR IV SOLUTION 1,000 ML IV SCH (20:57)
[2021-02-24] MEDS ORDERED: ZOLPIDEM 5 MG (AMBIEN) TAB PO NR (21:00)
[2021-02-24 22:00] VITALS: BP 128/66
[2021-02-24] MEDS ORDERED: CATHETER FLUSH 10 ML SYR IV SCH (22:00)
[2021-02-24 23:00] VITALS: BP 131/67
[2021-02-24] MEDS ORDERED: HYDR-3584 PO (23:26)
[2021-02-25] VITALS (49 sets, daily range): BP systolic 90–143; BP diastolic 55–85
[2021-02-25] MEDS: D5 LR IV SOLUTION 1,000 ML IV SCH (04:46)
[2021-02-25] MEDS ORDERED: BUTORPHANOL INJ 2 MG/ML (STADOL) VIAL ONE (06:24)
[2021-02-25] MEDS ORDERED: BUTORPHANOL INJ 2 MG/ML (STADOL) VIAL IV ONE (06:30)
[2021-02-25] MEDS ORDERED: OXYTOCIN PRE-MIX DRIP 500 ML IV ONE (06:45)
[2021-02-25] MEDS ORDERED: OXYTOCIN PRE-MIX DRIP 500 ML IV SCH ×2 (06:45→13:30)
[2021-02-25] MEDS ORDERED: fentaNYL 2 mcg/ml BUPIVA 0.125 100 ML ONE (06:56)
[2021-02-25] MEDS ORDERED: fentaNYL INJ 100 MCG/2 ML AMP ONE (07:39)
[2021-02-25] MEDS ORDERED: BUPIVACAINE 0.25% 30 ML (SENSORCAINE) VIAL ONE (07:39)
[2021-02-25] MEDS ORDERED: LACTATED RINGERS 1,000 ML IV SCH (08:15)
[2021-02-25] MEDS ORDERED: ONDANSETRON 4 MG/2 ML (SDV) Z0FRAN IV PRN (08:15)
[2021-02-25] MEDS ORDERED: diphenhydrAMINE 50 MG/ML INJ (BENADRYL) IV PRN (08:15)
[2021-02-25] MEDS ORDERED: EPIDURAL (fentaNYL 2 MCG/ML BUPIVA 0.125%)100 ML BAG EPI PRN (08:15)
[2021-02-25] MEDS ORDERED: NALOXONE 0.4 MG/ML 1 ML (NARCAN) VIAL IV PRN (08:15)
[2021-02-25] MEDS ORDERED: LIDOCAINE/EPI 2% 1:200,00 (XYLOCAINE) 20 ML VIAL ONE (11:34)
[2021-02-25] MEDS ORDERED: WITCH HAZEL(TUCKS) 40 EA JAR TOP PRN (13:30)
[2021-02-25] MEDS ORDERED: BENZOCAINE/MENTHOL (DERMOPLAST) 56 ML CAN TP PRN (13:30)
[2021-02-25] MEDS ORDERED: TETANUS,DIPTH,PERTUSS P/F (BOOSTRIX) 0.5 ML VIAL IM ONE (13:30)
[2021-02-25] MEDS ORDERED: MEASLES,MUMPS,RUBELLA 1 EA INJ SQ ONE (13:30)
--- NOTE | 2021-02-25 13:38 | OB Labor & Delivery Record ---
Vag Delivery Note Vag Delivery Note Date of Delivery: 02/25/21 Preoperative Diagnosis: Ana Geronimo is a (20 /Para 2/2 , Gestational Age (wks)38.0 here for IOL due to cholestasis of . Postoperative Diagnosis: Same Surgeon: BRENT CEJA Messenger Copy: None Anesthesia: Epidural Delivery Type: @ 1217 Findings: Viable male , apgars 8/9, weight 7#9, 3435 grams Lacerations: skin laceration Intact placenta with 3 vessel cord. No nuchal cord, body cord or shoulder dyst ocia Estimated Blood Loss: 150 ml Complications: None Condition: Stable Description of Procedure: The patient is a 20 year old female who presented for IOL for Cholestasis in . She was admitted and informed consent was obtained. Her labor course was unremarkable. She progressed to complete dilatation and began to push. She was then set up for delivery. The 's head was delivered atraumatically in the SAMANTHA position. The shoulders and remainder of the 's body were then delivered without difficulty. Upon delivery, the head was held below the level of the perineum and the mouth and nares were bulb suctioned. The cord was doubly clamped and cut and the infant was attended to by the pediatric staff after placed on maternal abdomen. An intact placenta with 3-vessel cord delivered via Jaciel and there was found to be minimal bleeding.~ Vigorous fundal massage was performed and the fundus was found to be firm. IV oxytocin was given. Examination of the vagina and perineum revealed a superficial skin laceration that did not require repair. Following the repair, sponge, instrument and needle counts were correct. Mom and baby were both in stable condition in the labor suite. Vitals - Labs Vital Signs - I&O Vital Signs Date Time Temp Pulse Resp B/P (MAP) Pulse Ox O2 Delivery O2 Flow Rate FiO2 02/25/21 09:57 85 18 118/65 (82) 97 Room Air 02/25/21 09:41 93 18 124/67 (86) 97 Room Air 02/25/21 09:26 82 18 110/62 (78) 97 Room Air 02/25/21 09:12 81 18 114/62 (79) 97 Room Air 02/25/21 08:58 89 18 112/69 (83) 97 Room Air 02/25/21 08:44 92 18 124/67 (86) 97 Room Air 02/25/21 08:26 36.9 101 18 119/80 (93) 97 Room Air 02/25/21 08:21 102 18 122/73 (89) 97 Room Air 02/25/21 08:18 100 18 119/74 (89) 97 Room Air 02/25/21 08:13 99 18 117/71 (86) 96 Room Air 02/25/21 08:06 100 18 125/70 (88) 97 Room Air 02/25/21 08:03 104 18 122/69 (86) 97 Room Air 02/25/21 08:00 107 18 132/80 (97) 98 Room Air 02/25/21 07:57 110 18 135/81 (99) 98 Room Air 02/25/21 07:54 98 18 134/78 (96) 99 Room Air 02/25/21 07:51 113 18 143/82 (102) 99 Room Air 02/25/21 07:48 109 18 123/82 (96) 99 Room Air 02/25/21 07:38 92 18 130/81 (97) Room Air 02/25/21 07:19 103 18 135/80 (98) Room Air 02/25/21 07:03 108 18 131/82 (98) Room Air 02/25/21 07:00 36.5 104 18 127/77 (94) Room Air 02/25/21 06:00 92 18 124/85 (98) Room Air 02/25/21 05:00 83 18 122/74 (90) Room Air 02/25/21 04:00 87 18 123/66 (85) Room Air 02/25/21 03:00 85 18 124/72 (89) Room Air 02/25/21 02:00 35.9 87 18 122/70 (87) Room Air 02/25/21 01:00 82 18 118/68 (85) Room Air 02/25/21 00:00 90 18 129/77 (94) Room Air 02/24/21 23:00 36.5 93 18 131/67 (88) Room Air 02/24/21 22:00 97 18 128/66 (86) Room Air 02/24/21 21:00 18 Room Air 02/24/21 20:00 36.7 104 18 129/82 (98) 98 Room Air 02/24/21 19:30 36.7 104 18 98 Room Air I & O 02/25/21 07:00 Intake Total 2000 ml Balance 2000 ml Labs Laboratory Tests 02/24/21 19:16: Urine Color YELLOW, Urine Clarity SL CLOUDY, Urine pH 6.5, Urine Specific [place] 1.020, Urine Protein NEGATIVE, Urine Glucose (UA) NEGATIVE, Urine Ketones NEGATIVE, Urine Nitrite NEGATIVE, Urine Bilirubin NEGATIVE, Urine Urobilinogen 0.2, Urine Leukocyte Esterase NEGATIVE, Urine RBC (Auto) 3+H, Urine RBC 0-2, Urine WBC NONE, Urine Squamous Epithelial Cells 2-5, Urine Crystals PRESENTH, Urine Amorphous Sediment RARE ALICE URATESH, Urine Bacteria TRACE, Urine Casts NONE, Urine Mucus SMALLH, Urine Culture Indicated NO 02/24/21 19:50: White Blood Count 12.4H, Red Blood Count 4.45, Hemoglobin 11.7, Hematocrit 35, Mean Corpuscular Volume 79L, Mean Corpuscular Hemoglobin 26, Mean Corpuscular Hemoglobin Concent 33, Red Cell Distribution Width 13.9, Platelet Count 291, Mean Platelet Volume 10.6, Immature Granulocyte % (Auto) 1, Neutrophils (%) (Auto) 70, Lymphocytes (%) (Auto) 20, Monocytes (%) (Auto) 9, Eosinophils (%) (Auto) 1, Basophils (%) (Auto) 0, Neutrophils # (Auto) 8.6H, Lymphocytes # ( Auto) 2.4, Monocytes # (Auto) 1.1H, Eosinophils # (Auto) 0.1, Basophils # (Auto) 0.0, Immature Granulocyte # (Auto) 0.1, Sodium Level 137, Potassium Level 3.6, Chloride Level 106, Carbon Dioxide Level 19L, Anion Gap 12, Blood Urea Nitrogen 6L, Creatinine 0.55L, Estimat Glomerular Filtration Rate 138, BUN/Creatinine Ratio 11, Glucose Level 89, Calcium Level 9.3, Corrected Calcium 9.7, Total Bilirubin 0.3, Aspartate Amino Transf (AST/SGOT) 13, Alanine Aminotransferase (ALT/SGPT) 13, Alkaline Phosphatase 201H, Total Protein 7.2, Albumin 3.5 BRENT CEJA MD Feb 25, 2021 13:38
--- NOTE | 2021-02-25 13:38 | History & Physical-OB ---
OB - Chief Complaint & HPI Date/Time Date of Admission: Date of Admission: Feb 24, 2021 at 18:43 Date seen by a Provider: Feb 24, 2021 Time Seen by a Provider: 16:30 Chief Complaint/History OB-Reason for Admission/Chief: Obstetrical Complication (Diffuse itching, cholestatis of , h/o Cholestatis in previous ) Hx : 2 Hx Para: 1 Expected Date of Delivery: Mar 10, 2021 Gestational Age in Weeks: 38 Gestational Age in Days: 0 Other reason for admission: Patient presented to routine appt yesterday. Patient has had increasing itching. Previous complicated with elevated bile acid salts and IOL @ 37 weeks. Patient states that itching and symptoms are the exact same that she had with previous . + FM. Denies LOF, Vag bleeding. She is having occasional ctxs. History of Labs O+, Ab neg Rub Imm HIV/RPR/HepB/C NR Normal 1 hr GTT GBS neg Allergies and Home Medications Allergies Coded Allergies: No Known Drug Allergies (Unverified , 11/14/18) Home Medications Hydroxyzine HCl 10 Mg Tablet, 10 MG PO TID, (Reported) Last Action: New Order Vit W-Ca,Fe,FA(<1 mg) 1 Each Tablet, 1 TAB PO DAILY, (Reported) Last Action: Reviewed Patient Home Medication List Home Medication List Reviewed: Yes OB - History Hx of Present Care: Yes Ultrasounds: Normal mid trimester US Obstetrical Complications: Other (Cholestatis in ) Medical Complications: None Information Induced Hypertension: No Maternal Gestational Diabetes: No Hemorrhage: No Obstetrical History Hx : 2 Hx Para: 1 Hx # Term Pregnancies: 1 Number of Living Children: 1 Delivery History Adverse Rxn to Tranfusion: No Patient Past Medical History Cholestatis in previous Social History/Family History Alcohol Use: Denies Use Recreational Drug Use: No Smoking Cessation: Never smoker 2nd Hand Smoke Exposure: No Immunizations Hepatitis A: No Hepatitis B: No Tetanus Booster (TDap): Less than 5yrs Rubella: immune RPR/VDRL: Negative GBS Status: Negative HBsAG: Negative OB - Admission Exam Physical Exam Vitals: Vital Signs 02/25/21 02/25/21 08:26 09:57 Temp 36.9 Pulse 85 Resp 18 B/P (MAP) 118/65 (82) Pulse Ox 97 O2 Delivery Room Air HEENT: NCAT Heart: Rhythm Normal Lungs: Clear Abdomen: Gravid Cervical Dilatation: 2cm Effacement: 75% Station: -2 Membranes: Intact Heart Rate: 140's Accelerations: Accelerations Present Decelerations: No Decelerations Short Term Variability: Present R And D Lab Technician Variability: Average (6-25) Contractions on Admission: 6-10 Minutes Apart Intensity: Moderate Harris Scoring Tool (Modified) Dilation (cm): 1-2cm (1) Effacement (%): 51-79% (2) Descent/Station: -1,0 (2) Cervix Consistency: Medium(1) Cervix Position: Middle/Mid-Position (1) Add 1 point for: Each previous vaginal delivery (1) Harris Score: 8 Labs Laboratory Tests Test 02/24/21 19:16 02/24/21 19:50 Range/Units Urine Color YELLOW Urine Clarity SL CLOUDY Urine pH 6.5 5-9 Urine Specific [place] 1.020 1.016-1.022 Urine Protein NEGATIVE NEGATIVE Urine Glucose (UA) NEGATIVE NEGATIVE Urine Ketones NEGATIVE NEGATIVE Urine Nitrite NEGATIVE NEGATIVE Urine Bilirubin NEGATIVE NEGATIVE Urine Urobilinogen 0.2 < = 1.0 MG/DL Urine Leukocyte Esterase NEGATIVE NEGATIVE Urine RBC (Auto) 3+ H NEGATIVE Urine RBC 0-2 /HPF Urine WBC NONE /HPF Urine Squamous Epithelial Cells 2-5 /HPF Urine Crystals PRESENT H /LPF Urine Amorphous Sediment RARE ALICE URATES H /LPF Urine Bacteria TRACE /HPF Urine Casts NONE /LPF Urine Mucus SMALL H /LPF Urine Culture Indicated NO White Blood Count 12.4 H 4.3-11.0 10^3/uL Red Blood Count 4.45 3.80-5.11 10^6/uL Hemoglobin 11.7 11.5-16.0 g/dL Hematocrit 35 35-52 % Mean Corpuscular Volume 79 L 80-99 fL Mean Corpuscular Hemoglobin 26 25-34 pg Mean Corpuscular Hemoglobin Concent 33 32-36 g/dL Red Cell Distribution Width 13.9 10.0-14.5 % Platelet Count 291 130-400 10^3/uL Mean Platelet Volume 10.6 9.0-12.2 fL Immature Granulocyte % (Auto) 1 % Neutrophils (%) (Auto) 70 42-75 % Lymphocytes (%) (Auto) 20 12-44 % Monocytes (%) (Auto) 9 0-12 % Eosinophils (%) (Auto) 1 0-10 % Basophils (%) (Auto) 0 0-10 % Neutrophils # (Auto) 8.6 H 1.8-7.8 10^3/uL Lymphocytes # (Auto) 2.4 1.0-4.0 10^3/uL Monocytes # (Auto) 1.1 H 0.0-1.0 10^3/uL Eosinophils # (Auto) 0.1 0.0-0.3 10^3/uL Basophils # (Auto) 0.0 0.0-0.1 10^3/uL Immature Granulocyte # (Auto) 0.1 0.0-0.1 10^3/uL Sodium Level 137 135-145 MMOL/L Potassium Level 3.6 3.6-5.0 MMOL/L Chloride Level 106 98-107 MMOL/L Carbon Dioxide Level 19 L 21-32 MMOL/L Anion Gap 12 5-14 MMOL/L Blood Urea Nitrogen 6 L 7-18 MG/DL Creatinine 0.55 L 0.60-1.30 MG/DL Estimat Glomerular Filtration Rate 138 BUN/Creatinine Ratio 11 Glucose Level 89 70-105 MG/DL Calcium Level 9.3 8.5-10.1 MG/DL Corrected Calcium 9.7 8.5-10.1 MG/DL Total Bilirubin 0.3 0.1-1.0 MG/DL Aspartate Amino Transf (AST/SGOT) 13 5-34 U/L Alanine Aminotransferase (ALT/SGPT) 13 0-55 U/L Alkaline Phosphatase 201 H 40-136 U/L Total Protein 7.2 6.4-8.2 GM/DL Albumin 3.5 3.2-4.5 GM/DL OB - Assessment/Plan/Diagnosis Assessment Assessment: induction of labor Admission Dx Third Trimester 38 weeks gestation Cholestasis of Admission Status: Inpatient Order (span 2 midnights) Reason for Inpatient Admission: Labor Plan Other Plan 20 yo @ 38.0 wga here for IOL for Cholestatis of Plan: - Cytotect protocol - GBS neg - Ok for epidural when patient desires - CMP to check status of cholestasis Copy Copies To 1: BRENT CEJA MD, HOLLY R MD Feb 25, 2021 13:38
[2021-02-25] MEDS ORDERED: CATHETER FLUSH 10 ML SYR IV SCH (14:00)
[2021-02-25] MEDS: IBUPROFEN 600 MG (MOTRIN) TAB PO SCH ×2 (14:39→20:10)
[2021-02-25] MEDS: DOCUSATE SODIUM 100 MG (COLACE) CAP PO SCH (20:09)
[2021-02-26 00:38] VITALS: BP 127/67
[2021-02-26] MEDS: IBUPROFEN 600 MG (MOTRIN) TAB PO SCH ×3 (02:25→16:25)
[2021-02-26 04:15] VITALS: BP 122/75
[2021-02-26 06:05] LABS: BASOPHILS # (AUTO) 0.1 10^3/uL (0.0-0.1); BASOPHILS % (AUTO) 1 % (0-10); EOSINOPHILS # (AUTO) 0.1 10^3/uL (0.0-0.3); EOSINOPHILS % (AUTO) 1 % (0-10); HEMATOCRIT 35 % (35-52); HEMOGLOBIN 11.2 g/dL (11.5-16.0); LYMPHOCYTES # (AUTO) 2.9 10^3/uL (1.0-4.0); LYMPHOCYTES % (AUTO) 21 % (12-44); MEAN CORPUSCULAR HEMOGLOBIN 26 pg (25-34); MEAN CORPUSCULAR HGB CONC 32 g/dL (32-36); MEAN CORPUSCULAR VOLUME 80 fL (80-99); MEAN PLATELET VOLUME 10.8 fL (9.0-12.2); MONOCYTES # (AUTO) 1.2 10^3/uL (0.0-1.0); MONOCYTES % (AUTO) 9 % (0-12); NEUTROPHILS # (AUTO) 9.6 10^3/uL (1.8-7.8); NEUTROPHILS % (AUTO) 69 % (42-75); PLATELET COUNT 261 10^3/uL (130-400); WHITE BLOOD COUNT 14.1 10^3/uL (4.3-11.0)
--- NOTE | 2021-02-26 06:56 | Discharge Summary ---
Diagnosis/Chief Complaint Date of Admission Feb 24, 2021 at 18:43 Date of Discharge February 26, 2021 Admission Diagnosis Admission Diagnosis 1. Intrauterine at term 38 weeks gestation 2. Cholestasis of Discharge Diagnosis 1. Intrauterine at term 38 weeks gestation 2. Cholestasis of Chief Complaint/HPI Chief Complaint/HPI 20-year-old 3 now term 2 who initially presented to labor and delivery during the evening of February 24, 2021 for induction of labor secondary to cholestasis of . Discharge Summary-OBS Procedures 1. Spontaneous vaginal delivery Discharge Physical Examination Allergies: Coded Allergies: No Known Drug Allergies (Unverified , 11/14/18) Vitals & I&Os Intake and Output 02/26/21 00:00 Intake Total 1000 ml Balance 1000 ml Vital Sign - Last 12Hours Date Time Temp Pulse Resp B/P (MAP) Pulse Ox O2 Delivery O2 Flow Rate FiO2 02/26/21 04:15 36.1 70 18 122/75 (91) 99 Room Air General Appearance: No Acute Distress Respiratory: Clear to Auscultation Cardiovascular: Regular Rate Abdominal: Soft (With uterus firm) Psych/Mental Status: Mental Status NL Hospital Course Patient presented to labor and delivery during the evening of February 24, 2021 for induction of labor with Cytotec. In the morning of February 25 she underwent amniotomy. Ultimately she went on to deliver a term viable male during early afternoon of February 25, 2021. Delivery was uncomplicated and no repair. Following delivery she underwent routine care orders. She was noted to have hemoglobin of 11.2 in the morning of February 26 compared to 11.7 on a dmission. She felt fine and was eager for dismissal during the afternoon of February 26, 2021. She was tolerating regular diet and ambulatory without any leg or chest complaints Labs Laboratory Tests 02/26/21 05:17: White Blood Count 14.1H, Red Blood Count 4.35, Hemoglobin 11.2L, Hematocrit 35, Mean Corpuscular Volume 80, Mean Corpuscular Hemoglobin 26, Mean Corpuscular Hemoglobin Concent 32, Red Cell Distribution Width 14.1, Platelet Count 261, Mean Platelet Volume 10.8, Immature Granulocyte % (Auto) 1, Neutrophils (%) (Auto) 69, Lymphocytes (%) (Auto) 21, Monocytes (%) (Auto) 9, Eosinophils (%) (Auto) 1, Basophils (%) (Auto) 1, Neutrophils # (Auto) 9.6H, Lymphocytes # (Auto) 2.9, Monocytes # (Auto) 1.2H, Eosinophils # (Auto) 0.1, Basophils # (Auto) 0.1, Immature Granulocyte # (Auto) 0.1 Discharge Instructions to patient/family Please see electronic discharge instructions given to patient. Discharge Medications Reviewed and agree with Discharge Medication list on patient's Discharge Instruction sheet MISTI HERNANDEZ MD Feb 26, 2021 06:56
--- NOTE | 2021-02-26 06:58 | Discharge Inst-Women's Service ---
Discharge Inst-Women's Serv Depart Medication/Instructions New, Converted or Re-Newed RX: Other Instructions May take ibuprofen 200 mg tablet 2 or 3 every 6 hours as needed for uterine cramps. Problems Reviewed?: Yes Consults/Follow Up Additional Follow Up: Yes (Dr. Carlos in 6 weeks) Activity Driving Instructions: No Driving for 1 Week Nothing Inside Vagina: No [place] (For 6 weeks) Diet Discharge Diet: Regular Diet Return to The Hospital For: As below Symptoms to Report to : Bleeding Excessive, Fever Over 101 Degrees F, Vaginal Discharge Foul For Any Problems or Questions: Contact Your Physician MISTI HERNANDEZ MD Feb 26, 2021 06:58
[2021-02-26] MEDS ORDERED: PRENATAL VITAMIN 1 EA TAB PO SCH (07:00)
[2021-02-26 09:15] VITALS: BP 119/66
[2021-02-26] MEDS: DOCUSATE SODIUM 100 MG (COLACE) CAP PO SCH (09:46)
--- NOTE | 2021-02-26 13:07 | Anesthesia-Regional Post-Op ---
Regional Patient Condition Mental Status: Alert, Oriented x3 Circulation: Same as Pre-Op Headache: Absent Sensation: Full Recovery Motor Block: Absent Post Op Complications Complications None Follow Up Care/Instructions Patient Instructions None needed. Anesthesia/Patient Condition Patient is doing well, no complaints, stable vital signs, no apparent adverse anesthesia problems. No complications reported per nursing. PEE LEES CRNA Feb 26, 2021 13:07
== END 2021-02-26 16:30 | disposition home or self-care (01) | DRG 805 ==
LOC: LDRP 18:43
PROVIDERS: ADMIT Family Medicine; ATTEND Family Medicine
PROC: 3E0DXGC Introduction of Other Therapeutic Substance into Mouth and Pharynx, External Approach (ICD-10-PCS; 2021-02-24)
PROC: 10E0XZZ Delivery of Products of Conception, External Approach (ICD-10-PCS; principal; 2021-02-25)
DX: O26.62 Liver and biliary tract disorders in childbirth (principal); K83.1 Obstruction of bile duct; O70.0 First degree perineal laceration during delivery; Z37.0 Single live birth; Z3A.38 38 weeks gestation of pregnancy
CPT/HCPCS: 36415; 80053; 81000; 85025; 86850; 86900; 86901